=== PATIENT | female | born 1985 | race Caucasian/White ===

== ENCOUNTER 2020-10-03 05:43 | Emergency (ER) | payer MEDICAID, SELFPAY ==
[2020-10-03 05:56] VITALS: BP 135/87; PULSE 71; RESP 18; TEMP 36.7; O2SAT 98; BMI 31.8
[2020-10-03 07:19] VITALS: BP 142/80; PULSE 65; RESP 18; O2SAT 99
--- NOTE | 2020-10-03 07:19 | W.ED.HA ---
HPI - Headache General: Chief Complaint: Headache Stated Complaint: Head Ache Time Seen by Provider: 10/03/20 06:24 Source: patient Mode of arrival: ambulatory Limitations: no limitations History of Present Illness: HPI Narrative: Patient is a 35-year-old female who presents to ED today with a complaint of a severe headache that has been present over the past month. Patient tells me she has no history of migraine headaches. Headache began at rest. She tells me she has not had any relief over the past month. She is rating her headache at a 12/10. She does not describe any alleviating or worsening factors to her discomfort. She is not have any visual changes. She denies neck pain or stiffness. No fevers. Patient has been seen 3 separate times at outside clinics. She tells me she has went to the [facility] walk-in clinic that tried IM medications without relief. She followed up with her PCP Dr. Ruiz. She states during that visit her blood pressure was high so Dr. uRiz placed her on Propranolol hoping this could treat her blood pressure and possibly her headache. She has not gained any relief from this medication. She then followed up at an urgent care clinic who recommended conservative therapy (heating pat, Aleve, etc) and following up with PCP. Patient states last night her headache worsened so decided to come to ED. No trouble with ambulation or speech. No nausea/vomiting. Denies photophobia. MD elicited complaint: headache Onset (ago): week(s) Onset description: gradually Location: right, temporal and occipital Severity: severe Pain scale (0-10): 12 Exacerbating factors: none Relieving factors: nothing Associated symptoms: Reports no associated symptoms; Deny chest pain, confusion, fever(s), malaise, nausea, rash or vomiting Treatments prior to arrival: acetaminophen, ibuprofen and other (IM medications at walk in clinic ) Review of Systems Const: Denies: fever(s), chills, body aches, change in appetite, change in weight, fatigue or malaise Eyes: Denies: change in vision, blurry vision, photophobia, eye discomfort, floaters or seeing flashes ENMT: Denies: throat pain, odynophagia, hoarseness, oral sores, ear or mastoid pain, ear discharge, change in hearing, tinnitus, disequilibrium, nasal discharge, nasal congestion, post nasal drip or sinus pain Card: Denies: chest pain or palpitations Resp: Denies: dyspnea GI: Denies: abdominal pain, nausea or vomiting Musc: Denies: neck pain, back pain, extremity pain, extremity swelling, joint pain or joint swelling Skin/Breast: Denies: rash Neuro: Denies: headache(s), numbness in extremities, weakness in extremities, sensory changes, lack of coordination, difficulty walking, dizziness, vertigo, confusion, Slurred speech present, difficulty communicating thoughts or seizure-like activity PFSH ED PFSH: Social History (Updated 09/30/20 @ 18:12 by Zora Raman LPN) Smoking and tobacco status: current every day smoker Female Reproductive History: Date of last menstrual period: 10/03/20 Physical Exam Const: COMMON NORMALS: no acute distress, average body habitus, patient oriented x3, no limitations, healthy appearing, alert and well nourished GENERAL APPEARANCE: cooperative ORIENTATION/CONSCIOUSNESS: Yes awake, Yes oriented to person, Yes oriented to place and Yes oriented to time HENMT: COMMON NORMALS: normocephalic, atraumatic, hearing grossly normal bilaterally, external ears normal, EAC's normal, TM's normal bilaterally, Normal external nose present, Normal nasal mucous membranes and turbinates present, moist oral mucous membranes, oropharynx normal and gingiva normal HEAD & SCALP: normal to inspection, normocephalic and atraumatic FACE & SINUS: normal facial exam and sinuses nontender NOSE: Normal external nose present and Normal nasal mucous membranes and turbinates present EXTERNAL EAR: Yes external ears normal EXTERNAL AUDITORY CANAL: EAC's normal TYMPANIC MEMBRANE: TM's normal bilaterally MOUTH: Normal oral and palatal mucosa present, lip normal and tongue normal THROAT: posterior oropharynx normal, tonsils normal and uvula midline Eye: COMMON NORMALS: Equal, round and reactive pupils present, EOMs intact bilaterally and normal visual nation by confrontation GENERAL EYE: appearance normal, both eyes and all related structures VISUAL ACUITY: Yes acuity normal PERIORBITAL: periorbital findings normal PUPIL: Yes Equal, round and reactive pupils present OTHER: no nystagmus Neck/C-Spine: COMMON NORMALS: full ROM, no lymphadenopathy and no meningeal signs Resp: COMMON NORMALS: normal respiratory effort Neuro: ANA COMA SCALE: document GCS findings Ana coma scale eye opening: Spontaneous [place] coma scale verbal response: Orientated [place] coma scale motor response: Obey commands [place] coma scale total score: 15 COMMON NORMALS: patient oriented x3, CN's II-XII intact bilaterally, moves all extremities, no focal motor deficits, no sensory deficits noted and gait normal SENSORIUM/ORIENTATION: Yes alert, Yes oriented to person, Yes oriented to place and Yes oriented to time MENINGEAL SIGNS: Yes no meningeal signs Skin: COMMON NORMALS: no rashes or lesions noted GENERAL SKIN EXAM: no rashes or lesions noted Course Consultations: Consultation #1: Dr. Odell-[facility] neurosurgery-recommends 10mg IV dexamethasone and transfer to their facility with plan for surgery; bed control did state they would have a bed available for her Vital Signs: Vital signs: Vital Signs Temperature 98.1 F 10/03/20 05:56 Pulse Rate 71 10/03/20 11:24 Respiratory Rate 18 10/03/20 11:24 Blood Pressure 119/73 10/03/20 11:24 Pulse Oximetry 98 10/03/20 11:24 MDM - Headache MDM Narrative: Medical decision making narrative: Immediately after MRI results were reviewed patient alerted nursing staff that she had to go as she has to be at home with her child so her boyfriend/fianc? could leave for work. I told patient I had not yet consulted with the neurosurgeon. She tells me that she must leave. I told patient I would contact her immediately after speaking to neurosurgery. After speaking to Dr. Odell he recommends having patient come back to the ED and transfer to [facility] as he feels this mass requires surgery given the fact that she already has a 6 mm midline shift. 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 Plan will be for patient to return, get 10mg IV dexamethasone, and transfer to [facility]. [facility] bed control did request we contact them when she returns so they may start working on her bed. Imaging Data^: CT Head: Radiologist's impression: [address] [place], [place] [address] Scan ReportSigned Patient: Zita Diaz #: [id number]: 1985Acct#:[id number]/Sex: 35 / FADM Date: 10/03/20Loc: ERRoom/Bed:Attending Dr: Ordering Provider/Ordering MD: Laura Desai Date of Service: 10/03/20 Procedure(s): CT head wo con* [id number] Accession Number(s): [id number] Report Number: [id number] WS: [id number] CT head wo con* [id number] REASON FOR EXAM: IQBAL IV CONTRAST ADMINISTERED: Noncontrast. TOTAL EXAM DLP: 826.[address] scans at [facility] use at least one of these dose optimization techniques: automated exposure control; mA and/or kV adjustment per patient size (includes targeted exams where dose is matched to clinical indication); or iterative reconstruction. FINDINGS: 5.2 x 3.9 heterogeneous mass of intermediate and low attenuation is seen in the right anterior cranial fossa. There is extensive perilesional edema with mass effect on the anterior horns the lateral ventricles. There is a 5 mm right to left midline shift. No calcification or blood products are identified. The lesion is contiguous with the region of the planum sphenoidale and right floor of the middle cranial fossa. Mild dilatation of the left lateral ventricle. No other significant focal findings. 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 The contiguity with the floor the middle cranial fossa would allow consideration that this is a large meningioma. An MRI brain without and with intravenous contrast is needed for further evaluation. Dictated By:José Torrez Jr MDSigned By:José Torrez Jr MDSigned Date/Time:10/03/20 0807DD/ 0754 MRI: Radiologist's impression: [address] [address] Magnetic Resonance Report Signed Patient: Zita Diaz Unit #: [id number] : 1985 Age/Sex: 35 / F ADM Date: 10/03/20 Loc: ER Room/Bed: Attending Dr: Ordering Provider/Ordering MD: Laura Desai Date of Service: 10/03/20 Procedure(s): MR head wo/w con [id number] Accession Number(s): [id number] Report Number: [id number] WS: [id number] MRI HEAD WITH CONTRAST TECHNIQUE: Sagittal T1, T2 axial, T2 axial FLAIR, axial susceptibility weighted imaging, axial diffusion weighted images, and coronal T2 images were obtained. Pre and post-T1 axial and post T1 coronal images. ADC and FSPGR images. CLINICAL INFORMATION: CT showing brain mass COMPARISON: CT October 03, 2020 FINDINGS: Comparison CT earlier today. Again seen is the heterogeneously enhancing vascular mass involving the right inferior frontal and right middle cranial fossa. This extends to the right inferior skull base with mild dural thickening and enhancement in this area. Heterogeneous mass measures approximately 4.9 x 3.8 x 3.9 cm AP by transverse by craniocaudal. Large amount of surrounding edema. Edema extends into the genu of the corpus callosum with mass effect on the frontal horns. Partial effacement of the suprasellar cistern. Ambient cisterns remain patent. Prominent vascularity with flow voids along the periphery and internal parenchyma of the lesion. Right to left midline shift measures approximately 6 mm. Compression of the foramen of Monro. Mild early trapping of the left lateral ventricle. No transependymal edema. Normal fourth ventricle and foramen magnum. Mild supratentorial mass effect. Enhancing lesion extends to the inferior inferior frontal skull base along the planum sphenoidale and breanne josé manuel. Associated compression of the optic chiasm and right prechiasmatic optic nerve. Compression of the right supraclinoid ICA. Mass encases and narrows the right supraclinoid ICA branches. Sella is preserved with normal pituitary tissue. In addition, the lesion involves the right orbit at the orbital apex and extends along the superior rectus with loss of the normal fat plane and slight orbital invasion. This abuts the superior oblique. Paranasal sinuses and mastoid air cells well aerated. Normal vascular flow voids at the skull base. Prominent lymphoid tissue in the posterior nasopharynx likely reactive in a patient this age. MR/MR head wo/w con [id number] IMPRESSION: 1. Heterogeneous enhancing mass right parasagittal frontal lobe extending to the inferior frontal skull base and middle cranial fossa. This measures approximately 4.9 x 3.8 x 3.9 cm. Large amount of surrounding edema extending into the corpus callosum. Right to left midline shift measures 6 mm with effacement of the frontal horns. 2. Partial effacement of the suprasellar cistern. No hydrocephalus. Early entrapment of the left lateral ventricle. No transependymal edema. Compression of the foramen of Jefferson. 3. Heterogeneous mass involves the right orbit extending to the orbital apex with mild contact of the superior rectus and superior oblique muscles. 4. Impingement on the optic chiasm and right prechiasmatic optic nerve. 5. Differential considerations include atypical or malignant meningioma versus GBM/astrocytoma. 6. Prominent surrounding and internal vascularity with involvement of the supraclinoid ICA. Notified JANELLE De La Cruz at 10/03/2020 1030AM. Dictated By: Chris Aguirre MD Signed By: Chris Aguirre MD Signed Date/Time: 10/03/20 1107 DD/ 1028 Discharge Plan Discharge Patient Disposition: Home Clinical Impression: Neoplasm of brain causing mass effect on adjacent structures Condition: Stable Prescriptions: No Action propranolol 20 mg tablet 10 mg PO BID RF: 0 Discharge Orders: Discharge ED (Routine); Ordered 10/03/20 Ordered By: Laura Desai Activity Restrictions/Additional Instructions: As we discussed you stated that you must leave the ED in order to attend to your child while your leaves for work. Your imaging revealed an aggressive appearing brain mass. As we discussed I need to consult with a neurosurgeon for further instruction and management. I am currently paging [facility] neurosurgery. I will contact you on the number you provided once I speak to them. You need to return to the emergency department for worsening headache, passing out episodes, visual changes, or any other concerns you may have. 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
--- NOTE | 2020-10-03 07:26 | CT_ITS ---
WS: [id number] CT head wo con* [id number] REASON FOR EXAM: IQBAL IV CONTRAST ADMINISTERED: Noncontrast. TOTAL EXAM DLP: 826.[address] scans at [facility] use at least one of these dose optimization techniques: automat ed exposure control; mA and/or kV adjustment per patient size (includes targeted exams where dose is matched to clinical indication); or iterative reconstruction. FINDINGS: 5.2 x 3.9 heterogeneous mass of intermediate and low attenuation is seen in the right anterior crania l fossa. There is extensive perilesional edema with mass effect on the anterior horns the lateral jennifer tricles. There is a 5 mm right to left midline shift. No calcification or blood products are identified. The lesion is contiguous with the region of the pl gavi sphenoidale and right floor of the middle cranial fossa. Mild dilatation of the left lateral ventricle. No other significant focal findings. 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 The contiguit y with the floor the middle cranial fossa would allow consideration that this i s a large meningioma. An MRI brain without and with intravenous contrast is needed for further evalua tion.
[2020-10-03] MEDS: ondansetron 2 mg/ML SDV 2 mL 4 MG IVP (08:13)
[2020-10-03] MEDS: sodium chloride 0.9% 1,000 ML 999 ML IV (08:13)
[2020-10-03] MEDS: ketorolac 60 mg/2 mL INJ 30 MG IVP (08:14)
[2020-10-03] MEDS: diphenhydrAMINE 50 mg/mL SDV 1mL IVP (08:15)
[2020-10-03] MEDS: dexamethasone 10 mg/mL INJ 8 MG IV (08:15)
[2020-10-03 08:20] VITALS: BP 122/86; PULSE 70; RESP 18; O2SAT 97
--- NOTE | 2020-10-03 08:38 | MR_ITS ---
WS: [id number] MRI HEAD WITH CONTRAST TECHNIQUE: Sagittal T1, T2 axial, T2 axial FLAIR, axial susceptibility weighted imaging, axial diffus ion weighted images, and coronal T2 images were obtained. Pre and post-T1 axial and post T1 coronal i mages. ADC and FSPGR images. CLINICAL INFORMATION: CT showing brain mass COMPARISON: CT October 03, 2020 FINDINGS: Comparison CT earlier today. Again seen is the heterogeneously enhancing vascular mass involving the right inferior frontal and right middle cranial fossa. This extends to the right inferior skull base with mild dural thickening and enhancement in this area. Heterogeneous mass measures approximately 4. 9 x 3.8 x 3.9 cm AP by transverse by craniocaudal. Large amount of surrounding edema. Edema extends i nto the genu of the corpus callosum with mass effect on the frontal horns. Partial effacement of the suprasellar cistern. Ambient cisterns remain patent. Prominent vascularity with flow voids along the periphery and internal parenchyma of the lesion. Right to left midline shift measures approximately 6 mm. Compression of the foramen of Monro. Mild early trapping of the left lateral ventricle. No trans ependymal edema. Normal fourth ventricle and foramen magnum. Mild supratentorial mass effect. Enhancing lesion extends to the inferior inferior frontal skull base along the planum sphenoidale and breanne josé manuel. Associated compression of the optic chiasm and right prechiasmatic optic nerve. Compre ssion of the right supraclinoid ICA. Mass encases and narrows the right supraclinoid ICA branches. Se lla is preserved with normal pituitary tissue. In addition, the lesion involves the right orbit at th e orbital apex and extends along the superior rectus with loss of the normal fat plane and slight orb ital invasion. This abuts the superior oblique. Paranasal sinuses and mastoid air cells well aerated. Normal vascular flow voids at the skull base. P rominent lymphoid tissue in the posterior nasopharynx likely reactive in a patient this age. MR/MR head wo/w con [id number] IMPRESSION: 1. Heterogeneous enhancing mass right parasagittal frontal lobe extending to t he inferior frontal skull base and middle cranial fossa. This measures approxim ately 4.9 x 3.8 x 3.9 cm. Large amount of surrounding edema extending into the corpus callosum. Right to left midline shift measures 6 mm with effacement of t he frontal horns. 2. Partial effacement of the suprasellar cistern. No hydrocephalus. Early entr apment of the left lateral ventricle. No transependymal edema. Compression of t he foramen of Jefferson. 3. Heterogeneous mass involves the right orbit extending to the orbital apex w ith mild contact of the superior rectus and superior oblique muscles. 4. Impingement on the optic chiasm and right prechiasmatic optic nerve. 5. Differential considerations include atypical or malignant meningioma versus GBM/astrocytoma. 6. Prominent surrounding and internal vascularity with involvement of the supr aclinoid ICA. Notified JANELLE De La Cruz at 10/03/2020 1030AM.
[2020-10-03 11:24] VITALS: BP 119/73; PULSE 71; RESP 18; O2SAT 98
[2020-10-03] MEDS: gadobenate dimeglumine 20 mL vial IV (14:18)
== END 2020-10-03 11:24 | disposition home or self-care (01) ==
PROVIDERS: Emergency Provider Physician Assistant
DX: D43.0 Neoplasm of uncertain behavior of brain, supratentorial (principal); F17.200 Nicotine dependence, unspecified, uncomplicated
CPT/HCPCS: 70450; 70553; 96361; 96374; 96375; 99284; A9577; J1100; J1200; J1885; J2405; J7030

== ENCOUNTER 2020-10-03 17:19 | Emergency (ER) | payer MEDICAID, SELFPAY ==
--- NOTE | 2020-10-03 17:22 | W.ED.HA ---
HPI - Headache General: Chief Complaint: General Medical Stated Complaint: BRAIN MASS Time Seen by Provider: 10/03/20 17:21 History of Present Illness: HPI Narrative: Patient is a 35-year-old female who presents to ED today with a complaint of a severe headache that has been present over the past month. Patient was seen here in the ED earlier today and a MRI was done which noted a brain mass with right to left midline shift. Patient had a leave and go home to take care of some things and then was told she can come back here to get transferred to [facility] to see the neurologist Dr. Odell. Patient tells me she has no history of migraine headaches. She reports having a mild headache currently. She is not have any visual changes. She denies neck pain or stiffness. No fevers. Associated symptoms: Deny chest pain, fever(s), nausea, rash or vomiting Review of Systems Const: Denies: fever(s), chills or fatigue Eyes: Denies: change in vision or eye discomfort ENMT: Denies: throat pain, odynophagia, nasal discharge or nasal congestion Card: Denies: chest pain, palpitations, edema, swelling of feet/ankles, dyspnea on exertion or orthopnea Resp: Denies: dyspnea, productive cough or non-productive cough GI: Denies: abdominal pain, nausea, vomiting, diarrhea, constipation or hematochezia : Denies: flank pain, dysuria or hematuria Musc: Denies: neck pain, back pain or extremity swelling Skin/Breast: Denies: rash or new lesions Neuro: Reports: headache(s); Denies: numbness in extremities or weakness in extremities PFS ED PFSH: Social History Smoking and tobacco status: current every day smoker Female Reproductive History: Date of last menstrual period: 10/03/20 Physical Exam Const: COMMON NORMALS: no acute distress, patient oriented x3, healthy appearing and alert GENERAL APPEARANCE: cooperative and comfortable HENMT: COMMON NORMALS: normocephalic HEAD & SCALP: normocephalic MOUTH: Normal oral and palatal mucosa present THROAT: posterior oropharynx normal and uvula midline Eye: COMMON NORMALS: Equal, round and reactive pupils present, EOMs intact bilaterally, conjunctivae normal and normal visual nation by confrontation CONJUNCTIVA: Yes conjunctivae normal PUPIL: Yes Equal, round and reactive pupils present Neck/C-Spine: COMMON NORMALS: supple GENERAL: Yes normal visual inspection Resp: COMMON NORMALS: normal respiratory effort, No retractions, No use of accessory muscles and clear to auscultation bilaterally AUSCULTATION: clear to auscultation bilaterally Cardio: COMMON NORMALS: regular rate, regular rhythm, S1 normal heart sound present, S2 normal heart sound present, No gallops present (Cardio), No clicks present (Cardio), No murmurs present (Cardio) and Peripheral pulses 2+ throughout RATE: regular rate RHYTHM: regular rhythm HEART SOUNDS: S1 normal heart sound present and S2 normal heart sound present PERIPHERAL PULSES: Peripheral pulses 2+ throughout GI: COMMON NORMALS: Normal to inspection, nondistended, normoactive bowel sounds present, Soft to palpation, non-tender and no masses PALPATION: Yes Soft to palpation : COMMON NORMALS: Yes no CVA tenderness BLADDER/KIDNEY EXAM: Yes no CVA tenderness Back/Pelvis: COMMON NORMALS: no CVA tenderness Extremity: COMMON NORMALS: normal to inspection Neuro: COMMON NORMALS: patient oriented x3, CN's II-XII intact bilaterally, moves all extremities, no focal motor deficits and no sensory deficits noted SENSORIUM/ORIENTATION: Yes alert SENSORY EXAM: Yes extremities (intact) MOTOR EXAM: 5/5 motor strength present throughout Skin: GENERAL SKIN EXAM: dry skin Course ED course: The physician assistant sales manager Laura Desai took care of patient this morning and she is coming back in here to the ED to be transferred to [facility]. Laura Desai has already spoke with Neurologist, Dr. Odell and [facility] has accepted transfer of pt. the neurologist wanted Laura Desai to have patient received 10 mg of Decadron IV before being transferred. Vital Signs: Vital signs: Vital Signs Temperature 97.8 F 10/03/20 18:15 Pulse Rate 91 10/03/20 20:01 Respiratory Rate 18 10/03/20 20:01 Blood Pressure 119/78 10/03/20 20:01 Pulse Oximetry 96 10/03/20 20:01 MDM - Headache MDM Narrative: Medical decision making narrative: Patient is a 35-year-old female who is returning to the ED after being seen earlier today for headache. The physician assistant sales manager Laura Desai took care of patient this morning and she is coming back in here to the ED to be transferred to [facility] due to MRI findings of a intracranial mass in the right frontal lobe. Laura Desai has already spoke with Neurologist, Dr. Odell and [facility] has accepted transfer of pt. patient complains of just a mild headache but no other symptoms. Neuro exam was normal and rest of exam was benign. IV was placed on patient and she was given 10 mg of Decadron. She was then transferred to [facility]. Discharge Plan Discharge Patient Disposition: Xfer Short-Term Hosp Clinical Impression: Neoplasm of brain causing mass effect on adjacent structures Condition: Stable Coding Level of Care Code ED Prior Authorization Nurse for Dwightg Fwd Exam Comprehensive
[2020-10-03 18:15] VITALS: BP 115/71; PULSE 109; RESP 18; TEMP 36.6; O2SAT 96; BMI 31.8
[2020-10-03] MEDS: dexamethasone 10 mg/mL INJ IVP (18:22)
[2020-10-03 19:13] VITALS: BP 115/71; PULSE 98; RESP 96; O2SAT 96
--- NOTE | 2020-10-03 19:16 | PC.NURSE ---
Report from NIKO Hurtado
[2020-10-03] MEDS: nicotine 14 mg Patch 1 PATCH TRANSDERMA (19:57)
[2020-10-03 20:01] VITALS: BP 119/78; PULSE 91; RESP 18; O2SAT 96
== END 2020-10-03 20:01 | disposition short-term general hospital (02) ==
PROVIDERS: Emergency Provider Physician Assistant; PCP Family Medicine
DX: D43.0 Neoplasm of uncertain behavior of brain, supratentorial (principal)
CPT/HCPCS: 96374; 99285; J1100

== ENCOUNTER 2022-06-07 10:01 | Emergency (ER) | payer MEDICAID, SELFPAY ==
[2022-06-07 10:30] VITALS: BP 147/80; PULSE 122; RESP 20; TEMP 36.7; O2SAT 97
[2022-06-07 10:38] VITALS: BP 136/74; PULSE 85; RESP 17; O2SAT 97
--- NOTE | 2022-06-07 10:44 | XR_ITS ---
WS: [id number] Exam: XR chest 1V portable [id number] Date/Time of Exam: 06/07/2022 10:44 AM Reason For Exam: dyspnea/cough Comparison 09/13/2018. Findings: The lungs are clear and fully expanded. Costophrenic angles are sharp. No infiltrates. Bronchovascula r relief appears normal. Cardiac silhouette is unremarkable. Bony elements are intact. XR/XR chest 1V portable [id number] IMPRESSION: Unremarkable chest radiograph.
[2022-06-07 11:16] VITALS: BP 122/77; PULSE 88; RESP 17; O2SAT 96
[2022-06-07 11:25] LABS: Basophils # 0.1 10^3/uL (0.0-0.1); Basophils % 0.4 %; Eosinophils # 0.2 10^3/uL (0.0-0.8); Hematocrit 42.4 % (37.0-47.0); Hemoglobin 13.7 g/dL (11.5-15.3); Lymphocytes % 19.7 %; Mean Corpuscular HGB Conc 32.3 g/dL (30.0-36.0); Mean Corpuscular Hemoglobin 31.1 pg (28.0-34.0); Mean Corpuscular Volume 96.4 fl (81-99); Mean Platelet Volume 9.3 fL (7.4-10.4); Monocytes # 1.6 10^3/uL (0.2-0.9); Monocytes % 7.6 %; Neutrophils # 14.35 10^3/uL (1.8-7.7); Neutrophils % 70.1 %; Nucleated Red Blood Cells % 0 %; Platelet Count 349 10^3/cmm (130-400); White Blood Count 20.5 10^3/uL (4.0-10.0)
--- NOTE | 2022-06-07 11:37 | ED_ITS ---
HPI - SOB/Dyspnea General: Chief Complaint: Shortness of Breath/Dyspnea Stated Complaint: sob,back pain, DR sent Time Seen by Provider: 06/07/22 10:42 Source: patient Mode of arrival: ambulatory History of Present Illness: HPI Narrative: 36-year-old female presents emergency room complaining of shortness of breath and back pain this been going on for nearly a month. She is currently on a steroid. Patient's biggest complaint is of cough she is not particularly short of breath except when she has coughing fits. Vital signs are stable she is not tachycardic or hypoxic on arrival here. She denies any hemoptysis. She is not on any anticoagulants at this time she is on steroids chronically. She is a current smoker. MD elicited complaint: shortness of breath and cough Pertinent past history: COPD Onset (ago): month(s) Timing: constant Severity: mild Exacerbating factors: nothing Relieving factors: nothing Known history of: COPD Associated symptoms: Reports cough; Deny abdominal pain, chest congestion, chest pain, diaphoresis, dizziness, extremity pain, fever(s), hemoptysis, lightheadedness, myalgias, nausea, orthopnea, palpitations, paresthesias, polydipsia, polyuria, rash, sense of impending doom, syncope or vomiting Review of Systems Const: Denies: fever(s) or diaphoresis Card: Denies: chest pain, palpitations, lightheadedness, syncope or orthopnea Resp: Denies: hemoptysis or chest congestion GI: Denies: abdominal pain, nausea or vomiting Musc: Denies: extremity pain Neuro: Denies: dizziness Endo: Denies: polyuria or polydipsia [facility] ED PFSH: Medical History (Updated 06/07/22 @ 13:56 by Yunier Ventura DO) Brain tumor COPD (chronic obstructive pulmonary disease) Social History Smoking and tobacco status: current every day smoker Physical Exam Const: COMMON NORMALS: no acute distress GENERAL APPEARANCE: cooperative and comfortable ORIENTATION/CONSCIOUSNESS: Yes awake, Yes oriented to person, Yes oriented to place and Yes oriented to time HENMT: COMMON NORMALS: normocephalic, atraumatic and hearing grossly normal bilaterally HEAD & SCALP: normocephalic and atraumatic Resp: COMMON NORMALS: normal respiratory effort, No retractions, No use of accessory muscles and clear to auscultation bilaterally AUSCULTATION: clear to auscultation bilaterally Cardio: COMMON NORMALS: regular rate, regular rhythm and No murmurs present (Cardio) RATE: regular rate RHYTHM: regular rhythm GI: COMMON NORMALS: Soft to palpation and No hepatosplenomegaly present AUSCULTATION: Yes normoactive bowel sounds PALPATION: Yes Soft to palpation, No Tenderness to palpation present (GI), No Guarding due to palpation present (GI) and Yes No hepatosplenomegaly present Extremity: COMMON NORMALS: normal to inspection, capillary refill normal, no clubbing, cyanosis or edema, no calf tenderness and no pedal edema Neuro: SENSORIUM/ORIENTATION: Yes oriented to person, Yes oriented to place and Yes oriented to time Skin: COMMON NORMALS: no rashes or lesions noted GENERAL SKIN EXAM: no rashes or lesions noted Course Vital Signs: Vital signs: Vital Signs Temperature 98.1 F 06/07/22 10:30 Pulse Rate 84 06/07/22 14:00 Respiratory Rate 16 06/07/22 14:00 Blood Pressure 155/83 06/07/22 14:00 Pulse Oximetry 96 06/07/22 14:00 Oxygen Delivery Me thod 06/07/22 13:08 MDM - SOB/Dyspnea Medical Decision Making Chest x-ray shows some hyper inflation based on her symptoms suspect she does have some COPD is at that that was driving his chronic cough she is not t achycardic or hypoxic. CTA was negative for PE. Discharge patient home on Advair continue beta agonist follow-up with primary care. Medical Records I reviewed the patient's medical records. Lab Data I reviewed the patient's lab results. 06/07/22 11:06 06/07/22 11:06 Labs/Radiology: Radiology Impressions Chest X-Ray 06/07/22 10:44 IMPRESSION: Unremarkable chest radiograph. Chest CTA 06/07/22 12:08 IMPRESSION: 1. No evidence of pulmonary embolus. 2. Lungs are well aerated. No acute pulmonary infiltrates. 3. No acute chest findings. Laboratory Results WBC 20.5 10^3/uL (4.0-10.0) H 06/07/22 11:06 RBC 4.40 10^6/uL (4.1-5.3) 06/07/22 11:06 Hgb 13.7 g/dL (11.5-15.3) 06/07/22 11:06 Hct 42.4 % (37.0-47.0) 06/07/22 11:06 MCV 96.4 fl (81-99) 06/07/22 11:06 MCH 31.1 pg (28.0-34.0) 06/07/22 11:06 MCHC 32.3 g/dL (30.0-36.0) 06/07/22 11:06 RDW 14.0 % (12.1-15.1) 06/07/22 11:06 Plt Count 349 10^3/cmm (130-400) 06/07/22 11:06 MPV 9.3 fL (7.4-10.4) 06/07/22 11:06 Neut % (Auto) 70.1 % 06/07/22 11:06 Lymph % (Auto) 19.7 % 06/07/22 11:06 [place] % (Auto) 7.6 % 06/07/22 11:06 Eos % (Auto) 1.0 % 06/07/22 11:06 Baso % (Auto) 0.4 % 06/07/22 11:06 Neut # (Auto) 14.35 10^3/uL (1.8-7.7) H 06/07/22 11:06 Lymph # (Auto) 4.0 10^3/uL (0.8-4.8) 06/07/22 11:06 [place] # (Auto) 1.6 10^3/uL (0.2-0.9) H 06/07/22 11:06 Eos # (Auto) 0.2 10^3/uL (0.0-0.8) 06/07/22 11:06 Baso # (Auto) 0.1 10^3/uL (0.0-0.1) 06/07/22 11:06 Nucleated RBC % (auto) 0 % 06/07/22 11:06 Nucleated RBCs # 0.0 /100WBC 06/07/22 11:06 Sodium 136 mmol/L (136-145) 06/07/22 11:06 Potassium 4.1 mmol/L (3.5-5.1) 06/07/22 11:06 Chloride 98 mmol/L (98-107) 06/07/22 11:06 Carbon Dioxide 30 mmol/L (22-29) H 06/07/22 11:06 Anion Gap 12.1 (5-19) 06/07/22 11:06 BUN 18 mg/dL (6-20) 06/07/22 11:06 Creatinine 0.7 mg/dL (0.5-0.9) 06/07/22 11:06 GFR Calculation 95.8 mL/min (90-130) 06/07/22 11:06 Glucose 75 mg/dL (65-115) 06/07/22 11:06 Calculated Osmolality 283 mOsm/kg (285-295) L 06/07/22 11:06 Calcium 9.5 mg/dL (8.5-10.5) 06/07/22 11:06 Total Bilirubin 0.2 mg/dL (0.15-1.2) 06/07/22 11:06 AST 16 U/L (0-32) 06/07/22 11:06 ALT 26 U/L (0-33) 06/07/22 11:06 Alkaline Phosphatase 56 U/L (35-105) 06/07/22 11:06 Total Protein 7.2 g/dL (6.6-8.7) 06/07/22 11:06 Albumin 4.4 g/dL (3.5-5.2) 06/07/22 11:06 Globulin 2.8 g/dL (1.3-4.6) 06/07/22 11:06 Discharge Plan Discharge Patient Disposition: Home Clinical Impression: Brain tumor, COPD (chronic obstructive pulmonary disease) Condition: Stable Prescriptions: New Advair Diskus 100-50 mcg/dose blister with device 1 inh inhalation BID Qty: 60 0RF No Action amoxicillin 500 mg capsule 500 mg PO BID hydrocodone-acetaminophen 5-325 mg tablet 1 tab PO Q6H PRN (Reason: Pain) alprazolam 0.5 mg tablet 0.5 mg PO BID PRN (Reason: Anxiety) benzonatate 100 mg capsule 200 mg PO TID omeprazole 20 mg Capsule,Delayed Release(Dr/Ec) 20 mg PO DAILY lidocaine HCl 3 % cream 1 applic topical BID Discharge Orders: Discharge ED (Routine); Ordered 06/07/22 Ordered By: Yunier Ventura Referrals: Becky Ruiz MD [Primary Care Provider] - Discharge Diet: Usual diet Discharge Activity: Increase activity as tolerated Patient Instructions: Opioid Safety, Pain Management Activity Restrictions/Additional Instructions: You were seen today for chronic cough and shortness of breath. Based on your history and your exam findings suspect you may have some underlying COPD and may benefit from further evaluation including pulmonary function test there was some hyperinflation of your lungs which can be an indication of COPD. CT of the chest was negative for pulmonary emboli. Your white count was slightly elevated but this is probably due to the prednisone you have told us you were taking. Continue current medications and recommend that you add the Advair 1 puff twice daily and follow-up with your primary care doctor. 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
[2022-06-07 11:41] LABS: Alanine Aminotransferase 26 U/L (0-33); Albumin Level 4.4 g/dL (3.5-5.2); Alkaline Phosphatase 56 U/L (35-105); Anion Gap 12.1 (5-19); Aspartate Amino Transferase 16 U/L (0-32); Blood Urea Nitrogen 18 mg/dL (6-20); Calcium 9.5 mg/dL (8.5-10.5); Carbon Dioxide 30 mmol/L (22-29); Chloride 98 mmol/L (98-107); Globulin 2.8 g/dL (1.3-4.6); Glomerular Filtration Rate 95.8 mL/min (90-130); Glucose 75 mg/dL (65-115); Osmolality Calculated 283 mOsm/kg (285-295); Potassium 4.1 mmol/L (3.5-5.1); Sodium 136 mmol/L (136-145); Total Bilirubin 0.2 mg/dL (0.15-1.2); Total Protein 7.2 g/dL (6.6-8.7)
[2022-06-07 11:52] LABS: Slide Review Slide Review Perform
--- NOTE | 2022-06-07 12:08 | CT_ITS ---
WS: [id number] CTA OF THE CHEST WITH PULMONARY EMBOLISM PROTOCOL TECHNIQUE: High-resolution contrast enhanced CTA of the chest with coronal and sagittal reformatted i mages with pulmonary embolism protocol. MIP images are also reviewed. CLINICAL INFORMATION: Cough shortness of breath COMPARISON: None. DLP: 380.[address] scans at [facility] use at least one of these dose optimization techniques: automated e xposure control; mA and/or kV adjustment per patient size (includes targeted exams where dose is matc hed to clinical indication); or iterative reconstruction. FINDINGS: Proximal main pulmonary arteries are normal. Normal segmental and subsegmental pulmonary arteries. No evidence of pulmonary embolus. Lungs are well aerated. No acute pulmonary infiltrates. No focal pneumonia or pleural fluid. No media stinal or hilar lymphadenopathy. No axillary lymphadenopathy. Adrenal glands are normal. Normal calib er upper abdominal aorta. CT/CT angio chest PE protcl [id number] IMPRESSION: 1. No evidence of pulmonary embolus. 2. Lungs are well aerated. No acute pulmonary infiltrates. 3. No acute chest findings.
[2022-06-07] MEDS: iohexol 350 mg/mL 500 mL Btl (per mL) IV (12:45)
[2022-06-07 13:08] VITALS: BP 155/83; PULSE 84; RESP 16; O2SAT 96
[2022-06-07 14:00] VITALS: BP 155/83; PULSE 84; RESP 16; O2SAT 96
== END 2022-06-07 14:01 | disposition home or self-care (01) ==
PROVIDERS: Emergency Provider Family Medicine; PCP Family Medicine
DX: J44.9 Chronic obstructive pulmonary disease, unspecified (principal); D49.6 Neoplasm of unspecified behavior of brain; F17.210 Nicotine dependence, cigarettes, uncomplicated
CPT/HCPCS: 71045; 71275; 80053; 85025; 99285; Q9967

== ENCOUNTER 2022-07-15 17:40 | Outpatient (CLI) | payer MEDICAID, SELFPAY ==
[2022-07-15 18:22] LABS: Bacteria Urine TRACE /hpf; Bilirubin Urine Neg (Negative); Blood Urine Neg (Negative); Glucose Urine UA Norm (Normal); Ketones Urine 1+ (Negative); Leukocyte Esterase Urine Negative (Negative); Mucus Urine 2+ /hpf; Nitrate Urine Negative (Negative); Protein Urine 1+ (Negative); RBC Urine 0-4 /hpf (0-2); Specific Gravity, Urine 1.025 (1.005-1.030); Squamous Epithelial Cell Urine 15-25 /hpf (0-5); Urine Appearance Hazy (CLEAR); Urine Color Yellow (Yellow); Urobilinogen Urine 1 mg/dL (Negative); WBC Urine 0-4 /hpf (0-5); pH Urine 5 (5-7)
[2022-07-15 18:23] LABS: Add Urine Culture? No
== END 2022-07-15 17:41 | disposition home or self-care (01) ==
LOC: LAB 17:46
PROVIDERS: PCP Family Medicine; Visit Provider Internal Medicine Medical Oncology
DX: C71.9 Malignant neoplasm of brain, unspecified (principal)
CPT/HCPCS: 81001; 87086

== ENCOUNTER 2022-10-24 03:14 | Emergency (ER) | payer MEDICAID, SELFPAY ==
[2022-10-24 03:19] VITALS: BP 182/112; PULSE 106; RESP 18; TEMP 36.6; O2SAT 96; BMI 37.5
[2022-10-24 03:48] VITALS: BP 138/98; PULSE 75; O2SAT 95
[2022-10-24] MEDS: clindamycin 150 mg Capsule 300 MG PO (04:38)
--- NOTE | 2022-10-24 04:39 | W.ED.SKABFB ---
HPI - Skin/Abscess/Foreign Bdy General: Chief complaint: Skin/Abscess/Foreign Body Stated complaint: Cist On Bottom History of Present Illness: 37-year-old female with history of anxiety presents emergency room with pain, swelling, redness and drainage from the left buttocks for the past few days. Patient was initially seen and evaluated at a local clinic and diagnosed with yeast infection and started on Diflucan. Patient reveals increased pain and drainage from the area within the past 24 hours. Described the pain as throbbing sensation with severity of 7 out of 10. Denies any fever, chills, nausea, vomiting, diarrhea or bloody stool. Review of Systems General: Reports: 10 or more systems reviewed and unremarkable except in HPI and below Skin/Breast: Reports: erythema, skin tenderness and other (Pus drainage.) PFSH ED PFSH: Medical History (Updated 10/24/22 @ 04:38 by Brock Duran MD) Brain tumor COPD (chronic obstructive pulmonary disease) Social History Smoking and tobacco status: current every day smoker Female Reproductive History: Date of last menstrual period: 05/15/22 Physical Exam Const: COMMON NORMALS: no acute distress, average body habitus, patient oriented x3, no limitations, healthy appearing, alert and well nourished Lymph: LYMPHATIC: no lymphadenopathy noted Resp: COMMON NORMALS: normal respiratory effort, No retractions, No use of accessory muscles, clear to auscultation bilaterally and percussion normal AUSCULTATION: clear to auscultation bilaterally PERCUSSION: percussion normal GI: COMMON NORMALS: Normal to inspection, nondistended, normoactive bowel sounds present, Soft to palpation, non-tender, No hepatosplenomegaly present, no masses and no bruits PALPATION: Yes Soft to palpation and Yes No hepatosplenomegaly present Neuro: COMMON NORMALS: patient oriented x3 SENSORIUM/ORIENTATION: Yes alert Skin: NARRATIVE SKIN EXAM: Left buttocks with diffuse redness, tenderness in the sinus. Sinus with purulent discharge. Procedures Abscess I/D Site: other (Left buttock) Side (if applicable): left Local Anesthetic: lidocaine 2% Amount of anesthesia used (mL): 10 Technique: incised with #11 blade Amount of fluid expressed (mL): 2 Irrigation: No Packing used?: iodoform Complications: pain Course Vital Signs: Vital signs: Vital Signs Temperature 97.9 F 10/24/22 03:19 Pulse Rate 75 10/24/22 03:48 Respiratory Rate 18 10/24/22 03:19 Blood Pressure 138/98 10/24/22 03:48 Pulse Oximetry 95 10/24/22 03:48 Oxygen Delivery Me thod Room Air 10/24/22 03:48 MDM - Skin/Abscess/Foreign Bdy Medicial Decision Making Patient made comfortable emergency room. Patient had I&D procedure done. The procedure was uneventful and no complication. She was given oral antibiotics. Patient be discharged home on oral antibiotics and close follow-up PCP recommended for wound recheck. Discharge Plan Discharge Patient Disposition: Home Clinical Impression: Abscess of skin or subcutaneous tissue Condition: Stable Prescriptions: New clindamycin HCl 300 mg capsule 300 mg PO TID 7 Days Qty: 21 0RF No Action amoxicillin 500 mg capsule 500 mg PO BID hydrocodone-acetaminophen 5-325 mg tablet 1 tab PO Q6H PRN (Reason: Pain) alprazolam 0.5 mg tablet 0.5 mg PO BID PRN (Reason: Anxiety) benzonatate 100 mg capsule 200 mg PO TID omeprazole 20 mg Capsule,Delayed Release(Dr/Ec) 20 mg PO DAILY lidocaine HCl 3 % cream 1 applic topical BID Advair Diskus 100-50 mcg/dose blister with device 1 inh inhalation BID Qty: 60 0RF Discharge Orders: Discharge ED (Routine); Ordered 10/24/22 Ordered By: Brock Duran Referrals: Becky Ruiz MD [Primary Care Provider] - Discharge Diet: Advance as tolerated Discharge Activity: Resume usual activity Patient Instructions: Opioid Safety, Pain Management Activity Restrictions/Additional Instructions: Wound recheck in 2 to 3 days. 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
[2022-10-24 04:43] VITALS: BP 155/105; PULSE 98; RESP 16; O2SAT 95
--- NOTE | 2022-10-24 05:01 | W.ED.SKABFB ---
HPI - Skin/Abscess/Foreign Bdy General: Chief complaint: Skin/Abscess/Foreign Body Stated complaint: Cist On Bottom History of Present Illness: Left buttocks with area of redness, drainage and pain Review of Systems General: Reports: 10 or more systems reviewed and unremarkable except in HPI and below Eyes: Denies: photophobia Skin/Breast: Reports: erythema, skin tenderness and other (Pus drainage.) PFSH ED PFSH: Medical History (Updated 10/24/22 @ 04:38 by Brock Duran MD) Brain tumor COPD (chronic obstructive pulmonary disease) Social History Smoking and tobacco status: current every day smoker Female Reproductive History: Date of last menstrual period: 05/15/22 Physical Exam Const: COMMON NORMALS: no acute distress, average body habitus, patient oriented x3, no limitations, healthy appearing, alert and well nourished Lymph: LYMPHATIC: no lymphadenopathy noted Resp: COMMON NORMALS: normal respiratory effort, No retractions, No use of accessory muscles, clear to auscultation bilaterally and percussion normal AUSCULTATION: clear to auscultation bilaterally PERCUSSION: percussion normal GI: COMMON NORMALS: Normal to inspection, nondistended, normoactive bowel sounds present, Soft to palpation, non-tender, No hepatosplenomegaly present, no masses and no bruits PALPATION: Yes Soft to palpation and Yes No hepatosplenomegaly present Neuro: COMMON NORMALS: patient oriented x3 SENSORIUM/ORIENTATION: Yes alert Skin: NARRATIVE SKIN EXAM: Left buttocks with diffuse redness, tenderness in the sinus. Sinus with purulent discharge. Course Vital Signs: Vital signs: Vital Signs Temperature 97.9 F 10/24/22 03:19 Pulse Rate 98 10/24/22 04:43 Respiratory Rate 16 10/24/22 04:43 Blood Pressure 155/105 10/24/22 04:43 Pulse Oximetry 95 10/24/22 04:43 Oxygen Delivery Me thod Room Air 10/24/22 03:48 MDM - Skin/Abscess/Foreign Bdy Medicial Decision Making Made comfortable emergency room Differential Diagnosis Likely abscess of skin or subcutaneous tissue, dermatophytosis, urticaria, herpes zoster, allergic reaction to drug, cellulitis, insect bites, impetigo and contact dermatitis Discharge Plan Discharge Patient Disposition: Home Clinical Impression: Abscess of skin or subcutaneous tissue Condition: Stable Prescriptions: New clindamycin HCl 300 mg capsule 300 mg PO TID 7 Days Qty: 21 0RF No Action amoxicillin 500 mg capsule 500 mg PO BID hydrocodone-acetaminophen 5-325 mg tablet 1 tab PO Q6H PRN (Reason: Pain) alprazolam 0.5 mg tablet 0.5 mg PO BID PRN (Reason: Anxiety) benzonatate 100 mg capsule 200 mg PO TID omeprazole 20 mg Capsule,Delayed Release(Dr/Ec) 20 mg PO DAILY lidocaine HCl 3 % cream 1 applic topical BID Advair Diskus 100-50 mcg/dose blister with device 1 inh inhalation BID Qty: 60 0RF Discharge Orders: Discharge ED (Routine); Ordered 10/24/22 Ordered By: Brock Duran Referrals: Becky Ruiz MD [Primary Care Provider] - Discharge Diet: Advance as tolerated Discharge Activity: Resume usual activity Patient Instructions: Opioid Safety, Pain Management Activity Restrictions/Additional Instructions: Wound recheck in 2 to 3 days. 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
== END 2022-10-24 04:48 | disposition home or self-care (01) ==
PROVIDERS: Emergency Provider Family Medicine; PCP Family Medicine
DX: L02.31 Cutaneous abscess of buttock (principal); J44.9 Chronic obstructive pulmonary disease, unspecified; F17.210 Nicotine dependence, cigarettes, uncomplicated
CPT/HCPCS: 10060; 99283

== ENCOUNTER 2022-10-24 18:12 | Emergency (ER) | payer MEDICAID, SELFPAY ==
[2022-10-24 18:32] VITALS: BP 161/105; PULSE 65; RESP 16; TEMP 36.6; O2SAT 96
--- NOTE | 2022-10-24 19:49 | W.ED.WOUNDLC ---
HPI - Wound/Laceration General: Chief Complaint: Wound/Laceration Stated Complaint: abs needs repacked Time Seen by Provider: 10/24/22 19:32 History of Present Illness: Patient was seen and evaluated by me yesterday for left buttocks abscess. Patient underwent incision and drainage of the abscess. Abscess was packed. Return to emergency room today because the packing was coming out. Denies any increased pain, no fever or chills. No nausea or vomiting. Review of Systems General: Reports: 10 or more systems reviewed and unremarkable except in HPI and below Skin/Breast: Reports: other (Left buttocks abscess status post I&D) [facility] ED PFS: Medical History (Updated 10/24/22 @ 19:48 by Brock Duran MD) Brain tumor COPD (chronic obstructive pulmonary disease) Social History Smoking and tobacco status: current every day smoker Physical Exam Const: COMMON NORMALS: no acute distress, average body habitus, patient oriented x3, no limitations, healthy appearing, alert and well nourished HENMT: COMMON NORMALS: normocephalic, atraumatic, hearing grossly normal bilaterally, external ears normal, EAC's normal, TM's normal bilaterally, Normal external nose present, Normal nasal mucous membranes and turbinates present, moist oral mucous membranes, oropharynx normal, dentition normal and gingiva normal HEAD & SCALP: normocephalic and atraumatic NOSE: Normal external nose present and Normal nasal mucous membranes and turbinates present EXTERNAL EAR: Yes external ears normal EXTERNAL AUDITORY CANAL: EAC's normal TYMPANIC MEMBRANE: TM's normal bilaterally Neck/C-Spine: COMMON NORMALS: no JVD Cardio: COMMON NORMALS: no JVD, regular rate, regular rhythm, S1 normal heart sound present, S2 normal heart sound present, No gallops present (Cardio), No clicks present (Cardio), No murmurs present (Cardio), No rub (Cardio) and Peripheral pulses 2+ throughout RATE: regular rate RHYTHM: regular rhythm HEART SOUNDS: S1 normal heart sound present and S2 normal heart sound present PERIPHERAL PULSES: Peripheral pulses 2+ throughout Neuro: COMMON NORMALS: patient oriented x3 SENSORIUM/ORIENTATION: Yes alert Skin: NARRATIVE SKIN EXAM: Left buttocks with area of localized redness. No acute drainage from the wound site. Packing was partially loose. No active bleeding. Course Vital Signs: Vital signs: Vital Signs Temperature 97.9 F 10/24/22 18:32 Pulse Rate 65 10/24/22 18:32 Respiratory Rate 16 10/24/22 18:32 Blood Pressure 161/105 10/24/22 18:32 Pulse Oximetry 96 10/24/22 18:32 Oxygen Delivery Me thod Room Air 10/24/22 18:32 MDM - Wound/Laceration Medical Decision Making Patient was made come to emergency room. The wound was repacked and secured with tape. Patient was told to continue taking antibiotics as directed. Follow-up PCP recommended for further evaluation and treatment of the wound. Differential Diagnosis Likely laceration, abscess, abrasion and avulsion of skin Discharge Plan Discharge Patient Disposition: Home Clinical Impression: Abscess of skin or subcutaneous tissue, Encounter for wound re-check Condition: Stable Prescriptions: No Action amoxicillin 500 mg capsule 500 mg PO BID hydrocodone-acetaminophen 5-325 mg tablet 1 tab PO Q6H PRN (Reason: Pain) alprazolam 0.5 mg tablet 0.5 mg PO BID PRN (Reason: Anxiety) benzonatate 100 mg capsule 200 mg PO TID omeprazole 20 mg Capsule,Delayed Release(Dr/Ec) 20 mg PO DAILY lidocaine HCl 3 % cream 1 applic topical BID Advair Diskus 100-50 mcg/dose blister with device 1 inh inhalation BID Qty: 60 0RF clindamycin HCl 300 mg capsule 300 mg PO TID 7 Days Qty: 21 0RF Discharge Orders: Discharge ED (Routine); Ordered 10/24/22 Ordered By: Brock Duran Referrals: Becky Ruiz MD [Primary Care Provider] - Discharge Diet: Advance as tolerated Discharge Activity: Resume usual activity Patient Instructions: Opioid Safety, Pain Management Activity Restrictions/Additional Instructions: Keep wound dry and clean. Follow-up with your doctor in 2 to 3 days for wound recheck. You are allowed to pull the packing in 3 days. 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
[2022-10-24] MEDS: TRAMadol 50 mg Tablet PO (20:00)
[2022-10-24 20:02] VITALS: PULSE 67; RESP 16; O2SAT 100
== END 2022-10-24 20:03 | disposition home or self-care (01) ==
PROVIDERS: Emergency Provider Family Medicine; PCP Family Medicine
DX: Z48.00 Encounter for change or removal of nonsurgical wound dressing (principal); L02.31 Cutaneous abscess of buttock; J44.9 Chronic obstructive pulmonary disease, unspecified; F17.210 Nicotine dependence, cigarettes, uncomplicated
CPT/HCPCS: 99283

== ENCOUNTER 2023-08-20 17:06 | Emergency (ER) | payer MEDICAID, SELFPAY ==
[2023-08-20] VITALS (7 sets, daily range): BP systolic 123–159; BP diastolic 82–104; PULSE 96–109; RESP 16–19; TEMP 36.7; O2SAT 94–100
[2023-08-20 18:52] LABS: Basophils # 0.1 10^3/uL (0.0-0.1); Basophils % 0.4 %; Eosinophils # 0.1 10^3/uL (0.0-0.8); Eosinophils % 0.8 %; Hematocrit 37.7 % (36-47); Lymphocytes # 2.6 10^3/uL (0.8-4.8); Lymphocytes % 16.7 %; Mean Corpuscular Hemoglobin 31.5 pg (27-33); Mean Corpuscular Volume 92.9 fl (85-98); Mean Platelet Volume 9.9 fL (7.4-10.4); Monocytes # 1.8 10^3/uL (0.2-0.9); Monocytes % 11.6 %; Neutrophils # 10.44 10^3/uL (1.8-7.7); Nucleated Red Blood Cells % 0 %; Platelet Count 262 10^3/cmm (157-399); Red Blood Count 4.06 10^6/uL (3.85-5.65); Red Cell Distribution Width 15.5 % (12.1-15.1); White Blood Count 15.57 10^3/uL (3.29-11.43)
--- NOTE | 2023-08-20 18:54 | CTR_ITS ---
PROCEDURE INFORMATION: Exam: CT Head Without Contrast Exam date and time: 08/20/2023 7:00 PM Age: 38 years old Clinical indication: Condition or disease; Other: Glioblastoma; Prior surgery; Surgery date: 6+ months; Surgery type: Laser ablasion; Additional info: Encephalopathy, recurrent glioblastoma. TECHNIQUE: Imaging protocol: Computed tomography of the head without contrast. Radiation optimization: All CT scans at this facility use at least one of these dose optimization techniques: automated exposure control; mA and/or kV adjustment per patient size (includes targeted exams where dose is matched to clinical indication); or iterative reconstruction. COMPARISON: MR head wo/w con [id number] 10/03/2020 9:11 AM RADIATION DOSE METRICS: Total DLP (mGy-cm): 1034 FINDINGS: Brain: The mass in the parafalcine right frontal lobe appears significantly smaller in size. Accurate measurement is not possible without IV contrast. Extensive white matter edema in the right frontal, anterior parietal, and anterior temporal lobes. New regions of encephalomalacia in the parafalcine right occipital and parietal lobes and anterior right frontal lobe. New large dystrophic calcifications in the right frontal lobe. New probable large lacunar infarct involving the posterior right caudate head, anterior limb of the internal capsule, and right lentiform nucleus. No brain herniation. 2-3 mm left subfalcine shift. No intracranial hemorrhage. Cerebral ventricles: No ventriculomegaly. Paranasal sinuses: Visualized sinuses are unremarkable. No fluid levels. Mastoid air cells: Visualized mastoid air cells are well aerated. Bones: Right frontal craniotomy defect with multiple plates and screws. [place] hole in the right frontal calvarium. Soft tissues: Unremarkable. CT/CT head wo con* [id number] IMPRESSION: 1. The previous mass in the parafalcine right frontal lobe appears significantly smaller in size, consistent with prior resection and treatment. This study is insensitive for detection of the mass or evaluating the size due to lack of IV contrast. 2. Extensive vasogenic edema in the right frontal, parietal, and temporal lobes. 3. New regions of encephalomalacia in the anterior right frontal lobe and parafalcine right parietal and occipital lobes. 4. New probable large lacunar infarct involving the right caudate head, anterior limb of the right internal capsule, and right lentiform nucleus. 5. Further evaluation of these findings with brain MRI is recommended.
--- NOTE | 2023-08-20 18:56 | ED_ITS ---
HPI - Altered Mental Status 2 General: Chief Complaint: Altered Mental Status Stated Complaint: sob, says having hard time walking Time Seen by Provider: 08/20/23 18:50 History of Present Illness: 38-year-old female with a history of rec urrent glioblastoma (according to her ) that has had multiple surgeries and has been getting chemotherapy and had recently stopped chemotherapy is about start again who presents to the emergency room with falls and some confusion. She does not appear to have anything focal on exam. No focal motor deficits. She has a GCS of 15. She does seem slightly confused at times. She follows commands and is oriented to her to the place. No known fevers. Patient says he called their oncologist and they told him to come to the emergency room. Review of Systems 2 Narrative: Constitutional symptoms: Negative except as documented in HPI. Skin symptoms: Negative except as documented in HPI. Eye symptoms: Negative except as documented in HPI. ENMT symptoms: Negative except as documented in HPI. Respiratory symptoms: Negative except as documented in HPI. Cardiovascular symptoms: Negative except as documented in HPI. Gastrointestinal symptoms: Negative except as documented in HPI. Genitourinary symptoms: Negative except as documented in HPI. Musculoskeletal symptoms: Negative except as documented in HPI. Neurologic symptoms: Negative except as documented in HPI. Psychiatric symptoms: Negative except as documented in HPI. Endocrine symptoms: Negative except as documented in HPI. PFSH ED 2 PFSH: Medical History COPD (chronic obstructive pulmonary disease) Brain tumor Social History Smoking and tobacco/nicotine status: current every day tobacco/nicotine user Physical Exam 2 Narrative: General: Alert, no acute distress. Skin: Warm, dry. Head: Normocephalic, atraumatic. Neck: Supple, trachea midline. Eye: Extraocular movements are intact. Ears, nose, mouth and throat: mucosa moist. Cardiovascular: Regular, Normal peripheral perfusion. Respiratory: Lungs are clear to auscultation, respirations are non-labored, breath sounds are equal, Symmetrical chest wall expansion. Gastrointestinal: Soft, Nontender, Non distended, Normal bowel sounds. Musculoskeletal: Normal ROM, no deformity. Neurological: Alert and oriented, No focal neurological deficit observed. Psychiatric: Cooperative, appropriate mood & affect. Course 2 Vital Signs: Vital signs: Vital Signs Temperature 98.1 F 08/20/23 17:12 Pulse Rate 96 08/20/23 21:00 Respiratory Rate 19 H 08/20/23 19:11 Blood Pressure 159/103 08/20/23 21:00 Pulse Oximetry 99 08/20/23 21:00 Oxygen Delivery Me thod Room Air 08/20/23 21:00 MDM - Altered Mental Status Medical Decision Making Medical decision making: Differential diagnosis including but not limited to and based on the above HPI, review of systems and physical exam: Concern for intracranial hemorrhage or mass with mass effect. Concern for infections. Electrolyte abnormalities. Orders placed to evaluate differential diagnosis based on the above differential, HPI and physical exam Lab Review: Laboratory results were reviewed and interpreted by myself the emergency room physician. Patient has some mild leukocytosis with a white count of 15.6. Hemoglobin is 12.8. BUN and creatinine are 20 and 0.5. Most noted her sodium is 120. Her last measurement was 136 About a year ago. CT of the head without contrast: Results are listed below. She has decreased in the parafalcine right frontal lobe mass. Which would be consistent with treatment. She has extensive vasogenic edema in the right frontal parietal and temporal lobes. New regions of encephalomalacia in the anterior right frontal lobe and parafalcine right parietal and occipital lobes. New probable large lacunar infarct involving the right caudate head, anterior limb and the right internal capsule. However we do not have any imaging since prior to the initiation of treatment surgery. I reviewed the patient's medical record. Reexamination: Patient remained stable. She follows commands. She expresses understanding. No increased work of breathing. I do not see any focal motor deficits. I discussed the findings with her as well and he agrees with transfer for emergency. Assessment and plan: Hyponatremia Recurrent glioblastoma Vasogenic edema -Patient has been accepted to [facility] for evaluation and treatment by oncology and neurosurgery if needed. - Discussed findings and plan with patient. Answered any questions. - All laboratory values were reviewed and interpreted personally by myself, the ER physician - All imaging was reviewed and interpreted personally by myself, the ER physician. - Evaluation and treatment of this problem were appropriate in the emergency setting Lab Data 08/20/23 18:44 08/20/23 18:[address] 08/20/23 18:54 IMPRESSION: 1. The previous mass in the parafalcine right frontal lobe appears significantly smaller in size, consistent with prior resection and treatment. This study is insensitive for detection of the mass or evaluating the size due to lack of IV contrast. 2. Extensive vasogenic edema in the right frontal, parietal, and temporal lobes. 3. New regions of encephalomalacia in the anterior right frontal lobe and parafalcine right parietal and occipital lobes. 4. New probable large lacunar infarct involving the right caudate head, anterior limb of the right internal capsule, and right lentiform nucleus. 5. Further evaluation of these findings with brain MRI is recommended. Laboratory Results WBC 15.57 10^3/uL (3.29-11.43) H 08/20/23 18:44 RBC 4.06 10^6/uL (3.85-5.65) 08/20/23 18:44 Hgb 12.80 g/dL (11.27-16.99) 08/20/23 18:44 Hct 37.7 % (36-47) 08/20/23 18:44 MCV 92.9 fl (85-98) 08/20/23 18:44 MCH 31.5 pg (27-33) 08/20/23 18:44 MCHC 34.0 g/dL (30-55) 08/20/23 18:44 RDW 15.5 % (12.1-15.1) H 08/20/23 18:44 Plt Count 262 10^3/cmm (157-399) 08/20/23 18:44 MPV 9.9 fL (7.4-10.4) 08/20/23 18:44 Neut % (Auto) 67.0 % 08/20/23 18:44 Lymph % (Auto) 16.7 % 08/20/23 18:44 [place] % (Auto) 11.6 % 08/20/23 18:44 Eos % (Auto) 0.8 % 08/20/23 18:44 Baso % (Auto) 0.4 % 08/20/23 18:44 Neut # (Auto) 10.44 10^3/uL (1.8-7.7) H 08/20/23 18:44 Lymph # (Auto) 2.6 10^3/uL (0.8-4.8) 08/20/23 18:44 [place] # (Auto) 1.8 10^3/uL (0.2-0.9) H 08/20/23 18:44 Eos # (Auto) 0.1 10^3/uL (0.0-0.8) 08/20/23 18:44 Baso # (Auto) 0.1 10^3/uL (0.0-0.1) 08/20/23 18:44 Nucleated RBC % (auto) 0 % 08/20/23 18:44 Nucleated RBCs # 0.0 /100WBC 08/20/23 18:44 Sodium 120 mmol/L (136-145) L 08/20/23 18:44 Potassium 3.9 mmol/L (3.5-5.1) 08/20/23 18:44 Chloride 83 mmol/L (98-107) L 08/20/23 18:44 Carbon Dioxide 23 mmol/L (22-29) 08/20/23 18:44 Anion Gap 17.9 (5-19) 08/20/23 18:44 BUN 20 mg/dL (6-20) 08/20/23 18:44 Creatinine 0.5 mg/dL (0.5-0.9) 08/20/23 18:44 GFR Calculation 139.6 mL/min (90-130) H 08/20/23 18:44 Glucose 94 mg/dL (65-115) 08/20/23 18:44 Calculated Osmolality 252 mOsm/kg (285-295) L 08/20/23 18:44 Calcium 9.0 mg/dL (8.5-10.5) 08/20/23 18:44 Total Bilirubin 0.4 mg/dL (0.15-1.2) 08/20/23 18:44 AST 17 U/L (0-32) 08/20/23 18:44 ALT 29 U/L (0-33) 08/20/23 18:44 Alkaline Phosphatase 57 U/L (35-105) 08/20/23 18:44 Total Protein 7.3 g/dL (6.6-8.7) 08/20/23 18:44 Albumin 3.9 g/dL (3.5-5.2) 08/20/23 18:44 Globulin 3.4 g/dL (1.3-4.6) 08/20/23 18:44 Urine Color Yellow (Yellow) 08/20/23 19:20 Urine Appearance Cloudy (CLEAR) A 08/20/23 19:20 Urine pH 5 (5-7) 08/20/23 19:20 Ur Specific [place] 1.020 (1.005-1.030) 08/20/23 19:20 Urine Protein Trace (Negative) 08/20/23 19:20 Urine Glucose (UA) Norm (Normal) 08/20/23 19:20 Urine Ketones 1+ (Negative) H 08/20/23 19:20 Urine Blood 2+ (Negative) H 08/20/23 19:20 Urine Nitrate Negative (Negative) 08/20/23 19:20 Urine Bilirubin Neg (Negative) 08/20/23 19:20 Urine Urobilinogen Norm mg/dL (Negative) 08/20/23 19:20 Ur Leukocyte Esterase 1+ (Negative) H 08/20/23 19:20 Urine RBC 0-4 /hpf (0-2) H 08/20/23 19:20 Urine WBC 0-4 /hpf (0-5) H 08/20/23 19:20 Ur Squamous Epith Cells 10-15 /hpf (0-5) H 08/20/23 19:20 Amorphous Sediment 1+ /hpf 08/20/23 19:20 Urine Bacteria 2+ /hpf (NONE) H 08/20/23 19:20 All radiology interpretation(s) finalized by discharge Discharge Plan Discharge Patient Disposition: Xfer Short-Term Hosp Clinical Impression: Glioblastoma, Hyponatremia, Vasogenic cerebral edema Condition: Stable Referrals: Becky Ruiz MD [Primary Care Provider] - Patient Instructions: Altered Mental Status (ED) Coding Level of Care Code ED [employer]
[2023-08-20 19:06] LABS: Alanine Aminotransferase 29 U/L (0-33); Albumin Level 3.9 g/dL (3.5-5.2); Alkaline Phosphatase 57 U/L (35-105); Anion Gap 17.9 (5-19); Aspartate Amino Transferase 17 U/L (0-32); Blood Urea Nitrogen 20 mg/dL (6-20); Carbon Dioxide 23 mmol/L (22-29); Chloride 83 mmol/L (98-107); Creatinine Clr Calc Pharmacy 218.3087; Globulin 3.4 g/dL (1.3-4.6); Glomerular Filtration Rate 139.6 mL/min (90-130); Glucose 94 mg/dL (65-115); Osmolality Calculated 252 mOsm/kg (285-295); Potassium 3.9 mmol/L (3.5-5.1); Sodium 120 mmol/L (136-145); Total Bilirubin 0.4 mg/dL (0.15-1.2); Total Protein 7.3 g/dL (6.6-8.7)
[2023-08-20 19:54] LABS: Protein Urine Trace (Negative); Urine Appearance Cloudy (CLEAR); Urine Color Yellow (Yellow); pH Urine 5 (5-7)
[2023-08-20 19:55] LABS: Add Urine Microscopic? YES; Bacteria Urine 2+ /hpf; Bilirubin Urine Neg (Negative); Blood Urine 2+ (Negative); Glucose Urine UA Norm (Normal); Ketones Urine 1+ (Negative); Leukocyte Esterase Urine 1+ (Negative); Nitrate Urine Negative (Negative); RBC Urine 0-4 /hpf (0-2); Urobilinogen Urine Norm (Negative); WBC Urine 0-4 /hpf (0-5)
[2023-08-20 19:56] LABS: Amorphous Sediment Urine 1+ /hpf
[2023-08-20 19:57] LABS: Add Urine Culture? No
--- NOTE | 2023-08-20 21:33 | PC.NURSE ---
REPORT CALLED TO JARON ESPINOZA TO CAMDEN SANCHEZ RN AT 2130.
== END 2023-08-20 22:36 | disposition short-term general hospital (02) ==
PROVIDERS: Nurse Practitioner Family; Emergency Provider Emergency Medicine; PCP Family Medicine
DX: E87.1 Hypo-osmolality and hyponatremia (principal); C71.1 Malignant neoplasm of frontal lobe; G93.6 Cerebral edema; J44.9 Chronic obstructive pulmonary disease, unspecified; Z72.0 Tobacco use; Z79.60 Long term (current) use of unspecified immunomodulators and immunosuppressants
CPT/HCPCS: 36415; 70450; 80053; 81001; 85025; 99284

== ENCOUNTER 2023-08-31 10:22 | Emergency (ER) | payer MEDICAID, SELFPAY ==
[2023-08-31] VITALS (159 sets, daily range): BP systolic 103–203; BP diastolic 53–171; PULSE 61–197; RESP 12–33; TEMP 36.9; O2SAT 87–100; BMI 42.7
--- NOTE | 2023-08-31 10:30 | XRR_ITS ---
PROCEDURE INFORMATION: Exam: XR Chest Exam date and time: 08/31/2023 10:43 AM Age: 38 years old Clinical indication: Other: AMS; Additional info: Ams/brain CA TECHNIQUE: Imaging protocol: Radiologic exam of the chest. Views: 1 view. COMPARISON: CT angio chest PE protcl [id number] 06/07/2022 12:51 PM FINDINGS: Lungs: Unremarkable. No consolidation. Pleural spaces: Unremarkable. No pleural effusion. No pneumothorax. Heart/Mediastinum: Unremarkable. No cardiomegaly. Bones/joints: Unremarkable. XR/XR chest 1V portable [id number] IMPRESSION: No acute findings.
--- NOTE | 2023-08-31 10:30 | CTR_ITS ---
PROCEDURE INFORMATION: Exam: CT Head Without Contrast Exam date and time: 08/31/2023 10:46 AM Age: 38 years old Clinical indication: Altered mental status/memory loss; Prior surgery; Surgery date: 6+ months; Surgery type: Brain; Additional info: AMS TECHNIQUE: Imaging protocol: Computed tomography of the head without contrast. Radiation optimization: All CT scans at this facility use at least one of these dose optimization techniques: automated exposure control; mA and/or kV adjustment per patient size (includes targeted exams where dose is matched to clinical indication); or iterative reconstruction. COMPARISON: CT head wo con* [id number] 08/20/2023 7:00 PM RADIATION DOSE METRICS: Total DLP (mGy-cm): 875.8 FINDINGS: Brain: Extensive vasogenic edema involving right frontal, temporal lobes and basal ganglia with effacement of lateral ventricles, minimal progression compared to previous study. Linear calcifications in right frontal lobe again seen. Minimal midline shift to left anteriorly no acute hemorrhage. is similar to previous study. Left frontal hypodensities in the inferior medial aspect is not significantly changed. Cerebral ventricles: Effacement of lateral ventricles secondary to edema and mass effect of right frontal, temporal and basal ganglia region abnormality show progression. Paranasal sinuses: Minimal mucosal thickening of ethmoid air cells. No fluid levels. Mastoid air cells: Visualized mastoid air cells are well aerated. Bones: Bilateral frontal craniotomy changes again noted. No acute fracture. Soft tissues: Unremarkable. CT/CT head wo con* [id number] IMPRESSION: Extensive vasogenic edema in right frontal, temporal and basal ganglia region causing mass effect and effacement of ventricles show minimal progression. No acute hemorrhage. Recommend MRI for further evaluation.
[2023-08-31 10:50] LABS: Basophils % 0.2 %; Eosinophils % 0.1 %; Hematocrit 33.6 % (36-47); Lymphocytes # 2.3 10^3/uL (0.8-4.8); Lymphocytes % 11.9 %; Mean Corpuscular HGB Conc 34.2 g/dL (30-55); Mean Corpuscular Hemoglobin 31.3 pg (27-33); Mean Corpuscular Volume 91.3 fl (85-98); Mean Platelet Volume 9.3 fL (7.4-10.4); Monocytes # 1.8 10^3/uL (0.2-0.9); Monocytes % 9.5 %; Neutrophils % 74.9 %; Nucleated Red Blood Cells % 0 %; Platelet Count 278 10^3/cmm (157-399); Red Blood Count 3.68 10^6/uL (3.85-5.65); Red Cell Distribution Width 15.5 % (12.1-15.1); White Blood Count 19.32 10^3/uL (3.29-11.43)
[2023-08-31 11:01] LABS: INR 0.93 (0.8-1.2)
[2023-08-31 11:02] LABS: Partial Thromboplastin Time 29.7 SECONDS (23.9-36.7)
[2023-08-31 11:06] LABS: Lactic Sepsis W/Reflex 1.1 mmol/L (0.5-2.2)
[2023-08-31] MEDS: sodium chloride 0.9% 1,000 ML 999 ML IV (11:16)
[2023-08-31 11:17] LABS: Thyroid Stimulating Hormone 23.88 uIU/mL (0.27-4.20)
--- NOTE | 2023-08-31 11:21 | ED_ITS ---
Documented by User: Carter Espinoza MD 08/31/23 22:24 HPI - Altered Mental Status 2 General: Chief Complaint: Altered Mental Status Stated Complaint: AMS Time Seen by Provider: 08/31/23 10:28 Source: EMS Mode of arrival: EMS Limitations: altered mental status History of Present Illness: Patient sent to hospital for altered mental status. Reportedly as recently as Friday she was walking around and talking and doing her thing though fatigued. Now since Friday she has permanent been bedbound and not eating or drinking not taking any of her medications. This morning patient cannot be aroused at all and was unresponsive so her called the ambulance. Patient arrives and is looking around but not responding to questions and not following commands. 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 HENMT: COMMON NORMALS: normocephalic, atraumatic, external ears normal and moist oral mucous membranes HEAD & SCALP: normocephalic and atraumatic E XTERNAL EAR: Yes external ears normal Eye: COMMON NORMALS: Equal, round and reactive pupils present, EOMs intact bilaterally and conjunctivae normal CONJUNCTIVA: Yes conjunctivae normal P UPIL: Yes Equal, round and reactive pupils present Neck/C-Spine: COMMON NORMALS: full ROM Chest: CHEST: Yes Symmetrical chest wall rise and No Surgical scars present (Chest) Resp: COMMON NORMALS: normal respiratory effort, No retractions, No use of accessory muscles and clear to auscultation bilaterally AUSCULTATION: clear to auscultation bilaterally Cardio: COMMON NORMALS: regular rate, regular rhythm, S1 normal heart sound present, S2 normal heart sound present, No gallops present (Cardio), No clicks present (Cardio), No murmurs present (Cardio) and No rub (Cardio) RATE: r egular rate RHYTHM: regular rhythm HEART SOUNDS: S1 normal heart sound present, S2 normal heart sound present and no murmurs PERIPHERAL PULSES: o ther (Radial pulses 2+ and symmetric) GI: COMMON NORMALS: Soft to palpation, non-tender and no masses INSPECTION: No abdominal distension PALPATION: Yes Soft to palpation, No Guarding due to palpation present (GI) and No Rebound tenderness present : COMMON NORMALS: Yes no CVA tenderness BLADDER/KIDNEY EXAM: Yes no CVA tenderness Back/Pelvis: COMMON NORMALS: no CVA tenderness Extremity: COMMON NORMALS: normal to inspection, full ROM, capillary refill normal and no clubbing, cyanosis or edema Neuro: SENSORIUM/ORIENTATION: Yes alert Psych: APPEARANCE: Yes well kempt Skin: COMMON NORMALS: no rashes or lesions noted, no wounds, turgor normal and no jaundice GENERAL SKIN EXAM: no rashes or lesions noted and turgor normal Course 2 Reevaluation(s): Reevaluation #1: Patient occasionally responding to questions. Very fatigued. Time: 16:48 Consultations: Consultation #1: Paged Dr. Faith; wants to speak with family prior to admitting patient. Time: 13:11 Consultation #2: Spoke with the oncology team at [facility] who accepts patient in transfer. The accepting attending will be Dr. Lilly. Time: 16:00 Consultation #3: Discussed with the hospitalist to consult and helping manage patient while waiting for bed at outside hospital Time: 20:06 Vital Signs: Vital signs: Vital Signs Temperature 98.5 F 08/31/23 10:23 Pulse Rate 68 09/01/23 00:35 Respiratory Rate 17 09/01/23 00:35 Blood Pressure 152/96 09/01/23 00:35 Pulse Oximetry 92 09/01/23 00:35 Oxygen Delivery Me thod Room Air 08/31/23 21:21 MDM - Altered Mental Status Medical Decision Making Patient has altered mental status, and based on valuation of this to be likely from multiple episodes of partial complex seizures versus focal seizures. Patient be tired and has a postictal state and then later will be able to be slightly more communicative. Reportedly she was walking just a few days ago. But since Friday has been able to eat or drink. Patient as such has not been giving her home steroid dose. Do not believe patient to be in a full myxedema coma however as an abundance of precaution and due to the likely lack of getting her levothyroxine as well as lack of her steroids going into a adrenal insufficiency course. Was given a mild dose of hydrocortisone and levothyroxine. Patient is found to have a possible UTI and so went ahead with Rocephin on that as well. Discussed the case with the hospitalist here who prefer patient be at a facility that has neurology. Patient was recently at [facility] and so a call was placed there. They reported they were 24 and 48 hours out on having an available bed and so a call was placed to [facility]. Spoke with the oncology team there who accepted the patient in transfer. Dr. Lilly is the accepting attending. Awaiting bed at [facility]. Patient has deteriorated to worsening mental status. GCS would be 7 currently. I have held off on intubating patient as she is maintaining her airway and I feel it is her chance of coming off the vent with her severity of disease would be minimal. I did add Cerebyx to her antiepileptics. So she is not 1.5 g of Keppra and 1 g of Cerebyx. I have consulted the hospitalist to help with management of the patient due to prolonged ED is awaiting transfer. And I have updated [facility] on her deterioration of status. At this time due to shift change I will be passing with the patient Dr. Sol here in the ER. Medical Records I reviewed the patient's medical records. Lab Data I reviewed the patient's lab results. 08/31/23 10:12 08/31/23 10:12 Radiology Impressions Chest X-Ray 08/31/23 10:30 IMPRESSION: No acute findings. Head CT 08/31/23 10:30 IMPRESSION: Extensive vasogenic edema in right frontal, temporal and basal ganglia region causing mass effect and effacement of ventricles show minimal progression. No acute hemorrhage. Recommend MRI for further evaluation. Laboratory Results WBC 19.32 10^3/uL (3.29-11.43) H 08/31/23 10:12 RBC 3.68 10^6/uL (3.85-5.65) L 08/31/23 10:12 Hgb 11.50 g/dL (11.27-16.99) 08/31/23 10:12 Hct 33.6 % (36-47) L 08/31/23 10:12 MCV 91.3 fl (85-98) 08/31/23 10:12 MCH 31.3 pg (27-33) 08/31/23 10:12 MCHC 34.2 g/dL (30-55) 08/31/23 10:12 RDW 15.5 % (12.1-15.1) H 08/31/23 10:12 Plt Count 278 10^3/cmm (157-399) 08/31/23 10:12 MPV 9.3 fL (7.4-10.4) 08/31/23 10:12 Neut % (Auto) 74.9 % 08/31/23 10:12 Lymph % (Auto) 11.9 % 08/31/23 10:12 Burnet % (Auto) 9.5 % 08/31/23 10:12 Eos % (Auto) 0.1 % 08/31/23 10:12 Baso % (Auto) 0.2 % 08/31/23 10:12 Neut # (Auto) 14.50 10^3/uL (1.8-7.7) H 08/31/23 10:12 Lymph # (Auto) 2.3 10^3/uL (0.8-4.8) 08/31/23 10:12 Burnet # (Auto) 1.8 10^3/uL (0.2-0.9) H 08/31/23 10:12 Eos # (Auto) 0.0 10^3/uL (0.0-0.8) 08/31/23 10:12 Baso # (Auto) 0.0 10^3/uL (0.0-0.1) 08/31/23 10:12 Nucleated RBC % (auto) 0 % 08/31/23 10:12 Nucleated RBCs # 0.0 /100WBC 08/31/23 10:12 PT 12.80 SECONDS (12.1-14.9) 08/31/23 10:12 INR 0.93 (0.8-1.2) 08/31/23 10:12 APTT 29.7 SECONDS (23.9-36.7) 08/31/23 10:12 Specimen Type Venous 08/31/23 12:52 Arya Test N/a 08/31/23 12:52 VBG pH 7.50 (7.32-7.42) H 08/31/23 12:52 VBG pCO2 35.6 mmHg (41-51) L 08/31/23 12:52 VBG pO2 40.3 mmHg (25-40) H 08/31/23 12:52 VBG HCO3 27.5 mmol/L (24-28) 08/31/23 12:52 VBG Base Excess 4.3 mmol/L (-3.0-3.0) H 08/31/23 12:52 VBG Hematocrit 35.5 % (37-47) L 08/31/23 12:52 O2 Delivery Device Room air 08/31/23 12:52 Director Wholesale ID [place] 08/31/23 12:52 Sodium 130 mmol/L (136-145) L 08/31/23 10:12 Potassium 4.2 mmol/L (3.5-5.1) 08/31/23 10:12 Chloride 88 mmol/L (98-107) L 08/31/23 10:12 Carbon Dioxide 27 mmol/L (22-29) 08/31/23 10:12 Anion Gap 19.2 (5-19) H 08/31/23 10:12 BUN 13 mg/dL (6-20) 08/31/23 10:12 Creatinine 0.4 mg/dL (0.5-0.9) L 08/31/23 10:12 GFR Calculation 180.6 mL/min (90-130) H 08/31/23 10:12 Glucose 96 mg/dL (65-115) 08/31/23 10:12 Calculated Osmolality 270 mOsm/kg (285-295) L 08/31/23 10:12 Lactic Acid 0.6 mmol/L (0.5-2.2) 08/31/23 22:59 Calcium 9.3 mg/dL (8.5-10.5) 08/31/23 10:12 Total Bilirubin 0.4 mg/dL (0.15-1.2) 08/31/23 10:12 AST 13 U/L (0-32) 08/31/23 10:12 ALT 25 U/L (0-33) 08/31/23 10:12 Alkaline Phosphatase 58 U/L (35-105) 08/31/23 10:12 Total Protein 6.6 g/dL (6.6-8.7) 08/31/23 10:12 Albumin 3.6 g/dL (3.5-5.2) 08/31/23 10:12 Globulin 3.0 g/dL (1.3-4.6) 08/31/23 10:12 Procalcitonin 0.09 ng/mL (0-0.5) 08/31/23 10:12 Procalcitonin 0.10 ng/mL (0-0.5) 08/31/23 10:12 TSH 23.88 uIU/mL (0.27-4.20) H 08/31/23 10:12 Free T4 1.39 ng/dL (0.82-1.77) 08/31/23 10:12 Urine Color Yellow (Yellow) 08/31/23 12:15 Urine Appearance Clear (CLEAR) 08/31/23 12:15 Urine pH 8 (5-7) H 08/31/23 12:15 Ur Specific [place] 1.010 (1.005-1.030) 08/31/23 12:15 Urine Protein Neg (Negative) 08/31/23 12:15 Urine Glucose (UA) Norm (Normal) 08/31/23 12:15 Urine Ketones Negative (Negative) 08/31/23 12:15 Urine Blood Neg (Negative) 08/31/23 12:15 Urine Nitrate Negative (Negative) 08/31/23 12:15 Urine Bilirubin Neg (Negative) 08/31/23 12:15 Prot Sulfosalicylic Acd Negative (Negative) 08/31/23 12:15 Urine Urobilinogen Norm mg/dL (Negative) 08/31/23 12:15 Ur Leukocyte Esterase 2+ (Negative) H 08/31/23 12:15 Urine RBC None /hpf (0-2) 08/31/23 12:15 Urine WBC 5-10 /hpf (0-5) H 08/31/23 12:15 Ur Squamous Epith Cells Rare /hpf (0-5) 08/31/23 12:15 Amorphous Sediment Not Reportable 08/31/23 12:15 Urine Bacteria 2+ /hpf (NONE) H 08/31/23 12:15 Ethyl Alcohol < 10 mg/dL (0-10) 08/31/23 10:12 All radiology interpretation(s) finalized by discharge ED provider radiology interpretation(s): Extensive vasogenic edema in the right frontal area on head CT. Chest x-ray done is unremarkable. Critical Care Time 2 Critical Care Time: Critical Care Time: Yes Total Critical Care Time: 55 Attestation: Documentation, bedside care, discussion with other in-house physicians, other outside hospital physicians. Discussion with transfer centers. Notation of sick conversations, placing orders and management of recurrent seizures. Discharge Plan Discharge Patient Disposition: Transfer to ED Clinical Impression: Vasogenic brain edema, Encephalopathy acute, Seizure, Glioblastoma, Acute adrenal insufficiency UTI (urinary tract infection) Qualifiers: Urinary tract infection type: acute cystitis Hematuria presence: without hematuria Qualified Code(s): N30.00 - Acute cystitis without hematuria Hypothyroidism Qualifiers: Hypothyroidism type: unspecified Qualified Code(s): E03.9 - Hypothyroidism, unspecified Condition: Stable Prescriptions: No Action temazepam 7.5 mg capsule PO levothyroxine 150 mcg capsule 150 mcg PO DAILY clindamycin HCl 300 mg capsule 300 mg PO TID 7 Days Qty: 21 0RF mupirocin 2 % ointment 1 applic topical TID 10 Days Qty: 15 0RF Rx Instructions: gluteal abscess' nystatin 100,000 unit/gram powder 1 applic topical BID 14 Days Qty: 30 0RF hydrocodone-acetaminophen 5-325 mg tablet 1 tab PO Q6H PRN (Reason: Pain) alprazolam 0.5 mg tablet 0.5 mg PO BID PRN (Reason: Anxiety) benzonatate 100 mg capsule 200 mg PO TID omeprazole 20 mg Capsule,Delayed Release(Dr/Ec) 20 mg PO DAILY lidocaine HCl 3 % cream 1 applic topical BID Advair Diskus 100-50 mcg/dose blister with device 1 inh inhalation BID Qty: 60 0RF Referrals: Becky Ruiz MD [Primary Care Provider] - Patient Instructions: Altered Mental Status (ED) Coding Level of Care Code ED Animal Shelter Supervisor for [facility]g Fwd Documented by User: Kimo Lewis Ebenezer, 09/01/23 00:46 HPI - Altered Mental Status 2 General: Chief Complaint: Altered Mental Status Stated Complaint: AMS Time Seen by Provider: 08/31/23 10:28 [facility] ED 2 PFSH: Medical History Hypothyroidism Glioblastoma COPD (chronic obstructive pulmonary disease) Social History Smoking and tobacco/nicotine status: current every day tobacco/nicotine user Course 2 Vital Signs: Vital signs: Vital Signs Temperature 98.5 F 08/31/23 10:23 Pulse Rate 68 09/01/23 00:35 Respiratory Rate 17 09/01/23 00:35 Blood Pressure 152/96 09/01/23 00:35 Pulse Oximetry 92 09/01/23 00:35 Oxygen Delivery Me thod Room Air 08/31/23 21:21 MDM - Altered Mental Status Medical Decision Making Patient has altered mental status, and based on valuation of this to be likely from multiple episodes of partial complex seizures versus focal seizures. Patient be tired and has a postictal state and then later will be able to be slightly more communicative. Reportedly she was walking just a few days ago. But since Friday has been able to eat or drink. Patient as such has not been giving her home steroid dose. Do not believe patient to be in a full myxedema coma however as an abundance of precaution and due to the likely lack of getting her levothyroxine as well as lack of her steroids going into a adrenal insufficiency course. Was given a mild dose of hydrocortisone and levothyroxine. Patient is found to have a possible UTI and so went ahead with Rocephin on that as well. Discussed the case with the hospitalist here who prefer patient be at a facility that has neurology. Patient was recently at [facility] and so a call was placed there. They reported they were 24 and 48 hours out on having an available bed and so a call was placed to [facility]. Spoke with the oncology team there who accepted the patient in transfer. Dr. Lilly is the accepting attending. Awaiting bed at [facility]. Patient has deteriorated to worsening mental status. GCS would be 7 currently. I have held off on intubating patient as she is maintaining her airway and I feel it is her chance of coming off the vent with her severity of disease would be minimal. I did add Cerebyx to her antiepileptics. So she is gotten 1.5 g of Keppra and 1 g of Cerebyx. I have consulted the hospitalist to help with management of the patient due to prolonged ED is awaiting transfer. And I have updated [facility] on her deterioration of status. At this time due to shift change I will be passing with the patient Dr. Sol here in the ER. 38-year-old female checked out to me at shift change. [facility]shmi also has notified us that a bed is available. Were trying to arrange transport. As this patient is deemed critical given her deteriorating status, we are attempting air ambulance transfer given the long transfer time. She will go by air or ground tonight. Lab Data 08/31/23 10:12 08/31/23 10:12 Radiology Impressions Chest X-Ray 08/31/23 10:30 IMPRESSION: No acute findings. Head CT 08/31/23 10:30 IMPRESSION: Extensive vasogenic edema in right frontal, temporal and basal ganglia region causing mass effect and effacement of ventricles show minimal progression. No acute hemorrhage. Recommend MRI for further evaluation. Laboratory Results WBC 19.32 10^3/uL (3.29-11.43) H 08/31/23 10:12 RBC 3.68 10^6/uL (3.85-5.65) L 08/31/23 10:12 Hgb 11.50 g/dL (11.27-16.99) 08/31/23 10:12 Hct 33.6 % (36-47) L 08/31/23 10:12 MCV 91.3 fl (85-98) 08/31/23 10:12 MCH 31.3 pg (27-33) 08/31/23 10:12 MCHC 34.2 g/dL (30-55) 08/31/23 10:12 RDW 15.5 % (12.1-15.1) H 08/31/23 10:12 Plt Count 278 10^3/cmm (157-399) 08/31/23 10:12 MPV 9.3 fL (7.4-10.4) 08/31/23 10:12 Neut % (Auto) 74.9 % 08/31/23 10:12 Lymph % (Auto) 11.9 % 08/31/23 10:12 Burnet % (Auto) 9.5 % 08/31/23 10:12 Eos % (Auto) 0.1 % 08/31/23 10:12 Baso % (Auto) 0.2 % 08/31/23 10:12 Neut # (Auto) 14.50 10^3/uL (1.8-7.7) H 08/31/23 10:12 Lymph # (Auto) 2.3 10^3/uL (0.8-4.8) 08/31/23 10:12 Burnet # (Auto) 1.8 10^3/uL (0.2-0.9) H 08/31/23 10:12 Eos # (Auto) 0.0 10^3/uL (0.0-0.8) 08/31/23 10:12 Baso # (Auto) 0.0 10^3/uL (0.0-0.1) 08/31/23 10:12 Nucleated RBC % (auto) 0 % 08/31/23 10:12 Nucleated RBCs # 0.0 /100WBC 08/31/23 10:12 PT 12.80 SECONDS (12.1-14.9) 08/31/23 10:12 INR 0.93 (0.8-1.2) 08/31/23 10:12 APTT 29.7 SECONDS (23.9-36.7) 08/31/23 10:12 Specimen Type Venous 08/31/23 12:52 Arya Test N/a 08/31/23 12:52 VBG pH 7.50 (7.32-7.42) H 08/31/23 12:52 VBG pCO2 35.6 mmHg (41-51) L 08/31/23 12:52 VBG pO2 40.3 mmHg (25-40) H 08/31/23 12:52 VBG HCO3 27.5 mmol/L (24-28) 08/31/23 12:52 VBG Base Excess 4.3 mmol/L (-3.0-3.0) H 08/31/23 12:52 VBG Hematocrit 35.5 % (37-47) L 08/31/23 12:52 O2 Delivery Device Room air 08/31/23 12:52 Director Wholesale ID [place] 08/31/23 12:52 Sodium 130 mmol/L (136-145) L 08/31/23 10:12 Potassium 4.2 mmol/L (3.5-5.1) 08/31/23 10:12 Chloride 88 mmol/L (98-107) L 08/31/23 10:12 Carbon Dioxide 27 mmol/L (22-29) 08/31/23 10:12 Anion Gap 19.2 (5-19) H 08/31/23 10:12 BUN 13 mg/dL (6-20) 08/31/23 10:12 Creatinine 0.4 mg/dL (0.5-0.9) L 08/31/23 10:12 GFR Calculation 180.6 mL/min (90-130) H 08/31/23 10:12 Glucose 96 mg/dL (65-115) 08/31/23 10:12 Calculated Osmolality 270 mOsm/kg (285-295) L 08/31/23 10:12 Lactic Acid 0.6 mmol/L (0.5-2.2) 08/31/23 22:59 Calcium 9.3 mg/dL (8.5-10.5) 08/31/23 10:12 Total Bilirubin 0.4 mg/dL (0.15-1.2) 08/31/23 10:12 AST 13 U/L (0-32) 08/31/23 10:12 ALT 25 U/L (0-33) 08/31/23 10:12 Alkaline Phosphatase 58 U/L (35-105) 08/31/23 10:12 Total Protein 6.6 g/dL (6.6-8.7) 08/31/23 10:12 Albumin 3.6 g/dL (3.5-5.2) 08/31/23 10:12 Globulin 3.0 g/dL (1.3-4.6) 08/31/23 10:12 Procalcitonin 0.09 ng/mL (0-0.5) 08/31/23 10:12 Procalcitonin 0.10 ng/mL (0-0.5) 08/31/23 10:12 TSH 23.88 uIU/mL (0.27-4.20) H 08/31/23 10:12 Free T4 1.39 ng/dL (0.82-1.77) 08/31/23 10:12 Urine Color Yellow (Yellow) 08/31/23 12:15 Urine Appearance Clear (CLEAR) 08/31/23 12:15 Urine pH 8 (5-7) H 08/31/23 12:15 Ur Specific [place] 1.010 (1.005-1.030) 08/31/23 12:15 Urine Protein Neg (Negative) 08/31/23 12:15 Urine Glucose (UA) Norm (Normal) 08/31/23 12:15 Urine Ketones Negative (Negative) 08/31/23 12:15 Urine Blood Neg (Negative) 08/31/23 12:15 Urine Nitrate Negative (Negative) 08/31/23 12:15 Urine Bilirubin Neg (Negative) 08/31/23 12:15 Prot Sulfosalicylic Acd Negative (Negative) 08/31/23 12:15 Urine Urobilinogen Norm mg/dL (Negative) 08/31/23 12:15 Ur Leukocyte Esterase 2+ (Negative) H 08/31/23 12:15 Urine RBC None /hpf (0-2) 08/31/23 12:15 Urine WBC 5-10 /hpf (0-5) H 08/31/23 12:15 Ur Squamous Epith Cells Rare /hpf (0-5) 08/31/23 12:15 Amorphous Sediment Not Reportable 08/31/23 12:15 Urine Bacteria 2+ /hpf (NONE) H 08/31/23 12:15 Ethyl Alcohol < 10 mg/dL (0-10) 08/31/23 10:12 Discharge Plan Discharge Patient Disposition: Transfer to ED Clinical Impression: Vasogenic brain edema, Encephalopathy acute, Seizure, Glioblastoma, Acute adrenal insufficiency UTI (urinary tract infection) Qualifiers: Urinary tract infection type: acute cystitis Hematuria presence: without hematuria Qualified Code(s): N30.00 - Acute cystitis without hematuria Hypothyroidism Qualifiers: Hypothyroidism type: unspecified Qualified Code(s): E03.9 - Hypothyroidism, unspecified Condition: Stable Prescriptions: No Action temazepam 7.5 mg capsule PO levothyroxine 150 mcg capsule 150 mcg PO DAILY clindamycin HCl 300 mg capsule 300 mg PO TID 7 Days Qty: 21 0RF mupirocin 2 % ointment 1 applic topical TID 10 Days Qty: 15 0RF Rx Instructions: gluteal abscess' nystatin 100,000 unit/gram powder 1 applic topical BID 14 Days Qty: 30 0RF hydrocodone-acetaminophen 5-325 mg tablet 1 tab PO Q6H PRN (Reason: Pain) alprazolam 0.5 mg tablet 0.5 mg PO BID PRN (Reason: Anxiety) benzonatate 100 mg capsule 200 mg PO TID omeprazole 20 mg Capsule,Delayed Release(Dr/Ec) 20 mg PO DAILY lidocaine HCl 3 % cream 1 applic topical BID Advair Diskus 100-50 mcg/dose blister with device 1 inh inhalation BID Qty: 60 0RF Referrals: Becky Ruiz MD [Primary Care Provider] - Patient Instructions: Altered Mental Status (ED) Coding Level of Care Code ED Animal Shelter Supervisor for [place]
[2023-08-31 11:28] LABS: Alanine Aminotransferase 25 U/L (0-33); Albumin Level 3.6 g/dL (3.5-5.2); Alkaline Phosphatase 58 U/L (35-105); Aspartate Amino Transferase 13 U/L (0-32); Blood Urea Nitrogen 13 mg/dL (6-20); Calcium 9.3 mg/dL (8.5-10.5); Carbon Dioxide 27 mmol/L (22-29); Chloride 88 mmol/L (98-107); Glomerular Filtration Rate 180.6 mL/min (90-130); Glucose 96 mg/dL (65-115); Osmolality Calculated 270 mOsm/kg (285-295); Sodium 130 mmol/L (136-145); Total Bilirubin 0.4 mg/dL (0.15-1.2); Total Protein 6.6 g/dL (6.6-8.7)
[2023-08-31 11:35] LABS: Alcohol Level < 10 mg/dL (0-10); Creatinine Clr Calc Pharmacy 205.7596
[2023-08-31 11:38] LABS: Anion Gap 19.2 (5-19); Potassium 4.2 mmol/L (3.5-5.1)
[2023-08-31] MEDS: hydrocortisone 100 mg/2 mL SDV 50 MG IVP (12:04)
[2023-08-31] MEDS: levothyroxine 100 mcg/mL SDV 200 MCG IVP (12:22)
[2023-08-31 12:56] LABS: Base Excess VBG 4.3 mmol/L (-3.0-3.0); Blood Gas Operator Identificat WALCI; Blood Gas Sample Type Venous; HCO3 VBG 27.5 mmol/L (24-28); Oxygen Device ROOM AIR; PCO2 VBG 35.6 mmHg (41-51); PO2 VBG 40.3 mmHg (25-40); Venous Blood Gas Hematocrit 35.5 % (37-47)
[2023-08-31 13:20] LABS: Bilirubin Urine Neg (Negative); Blood Urine Neg (Negative); Glucose Urine UA Norm (Normal); Ketones Urine Negative (Negative); Leukocyte Esterase Urine 2+ (Negative); Nitrate Urine Negative (Negative); Protein Urine Neg (Negative); Sulfosalicylic Acid Urine Negative (Negative); Urine Appearance Clear (CLEAR); Urine Color Yellow (Yellow); Urobilinogen Urine Norm (Negative); pH Urine 8 (5-7)
[2023-08-31 13:21] LABS: Add Urine Culture? Yes; Add Urine Microscopic? YES; Bacteria Urine 2+ /hpf; Squamous Epithelial Cell Urine RARE /hpf (0-5)
[2023-08-31] MEDS: cefTRIAXone 1,000 MG in sodium chloride 0.9% (plus) 50 ML 100 MG IV (13:58)
[2023-08-31] MEDS: levETIRAcetam 1,500 MG/100 ML PREMIX 400 MG IV (14:54)
[2023-08-31] MEDS: hyDRALAzine 20 mg/mL INJ 1 mL 10 MG IVP (15:36)
[2023-08-31] MEDS: dexamethasone 4 mg/mL INJ IVP ×2 (15:37→21:31)
--- NOTE | 2023-08-31 20:13 | P.CONIM_ITS ---
Providers/Reason For Consult 2 Consulting Physician/Specialty*: Internal Medicine Reason for Consult*: Medical Management Attending Physician: Olga Primary Care Provider: Becky Ruiz MD History of Present Illness History of Present Illness Zita Diaz is a 38 year old female with a past medical history significant for glioblastoma for which she follows at [facility], COPD, hypothyroidism, and GERD presents to the emergency department with altered mental status. Upon assessment, patient is awake. Her speech is garbled and not understandable. History is therefore obtained from discussion with ED provider for collateral information and chart review. No family is bedside on my evaluation. Per report, she was doing relatively well as of last Friday. At that time she was reportedly still walking and talking appropriately. She has had issues with fatigue recently given her underlying elements. Beginning on Friday, she got markedly more weak. She has been reportedly bedbound since Friday. She has had poor oral intake to both solids and liquids since Friday. She reportedly cannot be aroused for which the called EMS. Patient is awake. She looks around the room on my assessment. She has some limited garbled speech to my questions which is incomprehensible. She is unable to communicate nonverbally as well. This severely limits history from the patient. In the emergency room, vitals significant for tachypnea. Labs revealed persistent leukocytosis, hyponatremia, hypochloremia, and elevated TSH. Urinalysis showed 2+ leukocyte esterase with 5-10 WBCs and 2+ bacteria. Chest x-ray was negative for acute findings. Head CT showed extensive vasogenic edema in the right frontal, temporal and basal ganglia region causing mass effect and effacement of the ventricles show minimal progression. There is no acute hemorrhage. Patient was discussed with oncology at [facility]'s where she is being treated for her glioblastoma. Accepted for transfer pending bed availability. Apparently, her symptoms have shown some waxing waning over the course of the past days concerning for seizure disorder. She was started on Keppra as well as dexamethasone in the emergency department. Attempted to obtain a complete review of systems, past medical history, past surgical history, family history, social history; however unable to due to patient's current encephalopathy secondary to vasogenic edema. Review of Systems 2 Narrative: Attempted to obtain a complete review of systems, but unable to due to patient's current mentation and inability to provide answers to ROS. Medications/Allergies Home Medications Medication Instructions Recorded Confirmed Last Taken Type alprazolam 0.5 mg tablet 0.5 mg PO BID PRN Anxiety 06/07/22 05/04/23 Unknown History benzonatate 100 mg capsule 200 mg PO TID 06/07/22 05/04/23 06/06/22 History fluticasone 100 mcg-salmeterol 50 1 inh inhalation BID #60 ea 06/07/22 05/04/23 Unknown Rx mcg/dose blistr powdr for inhalation (Advair Diskus) hydrocodone 5 mg-acetaminophen 325 1 tab PO Q6H PRN Pain 06/07/22 05/04/23 Unknown History mg tablet lidocaine HCl 3 % topical cream 1 applic topical BID 06/07/22 05/04/23 06/06/22 History omeprazole 20 mg capsule,delayed 20 mg PO DAILY 06/07/22 05/04/23 06/06/22 History release clindamycin HCl 300 mg capsule 300 mg PO TID 7 days #21 caps 05/04/23 05/04/23 Unknown Rx levothyroxine 150 mcg capsule 150 mcg PO DAILY 05/04/23 05/04/23 Unknown History mupirocin 2 % topical ointment 1 applic topical TID 10 days #15 05/04/23 05/04/23 Unknown Rx grams nystatin 100,000 unit/gram topical 1 applic topical BID 14 days #30 05/04/23 05/04/23 Unknown Rx powder grams temazepam 7.5 mg capsule mg PO 05/04/23 05/04/23 Unknown History Allergies Allergy/AdvReac Type Severity Reaction Status Date / Time aspirin Allergy ALGY-Difficulty Verified 08/20/23 17:17 Breathing doxycycline Allergy nausea Verified 08/20/23 17:17 Penicillins Allergy nausea Verified 08/20/23 17:17 Sulfa (Sulfonamide Allergy nausea Verified 08/20/23 17:17 Antibiotics) PFSH Acute 2 PFSH: Medical History Hypothyroidism Glioblastoma COPD (chronic obstructive pulmonary disease) Social History Smoking and tobacco/nicotine status: current every day tobacco/nicotine user Vitals/I&O/Wt Last Vital Signs Temp 98.5 F 08/31/23 10:23 Pulse 100 08/31/23 19:00 Resp 22 H 08/31/23 19:00 BP 141/103 08/31/23 18:55 Pulse Ox 96 08/31/23 19:00 O2 Del Method Room Air 08/31/23 18:30 08/31/23 08/31/23 08/31/23 06:59 14:59 22:59 Intake Total 1050 / 1050 100 / 1150 Output Total 950 / 950 Balance 1050 / 1050 -850 / 200 Weight last 48 hrs Weight 99.337 kg Physical Exam 2 Narrative: General: Patient is awake. Head: Normocephalic. Atraumatic. Neck: No JVD. Cardiovascular: RRR. No gallops. No murmurs. Lungs: Clear to auscultation, no use of accessory muscles, no crackles or wheezes. Slight tachypnea. Skin: No jaundice. No rashes. Abdomen: Normal bowel sounds, abdomen soft and nontender. Genito Urinary: Urinary catheter Extremities: No cyanosis or clubbing. Musculoskeletal: No swollen or erythematous joints. Neurological: Moves all 4 extremities. No myoclonus. Poverty of speech. Speech that is produced is incomprehensible. Urinary Catheter Management: Boogie: Cath Placed During This Visit: yes Reason for Continuing Indwelling Catheter: Accurate Measurement of Urinary Output in Critically Ill Patients Urinary Catheter Date of Insertion: 08/31/23 Data 08/31/23 10:12 08/31/23 10:12 A&P Assessment and plan (1) Glioblastoma: Agree with transfer to [facility] (2) Vasogenic brain edema: Vasogenic edema w/ decreased responsiveness Status post dexamethasone 10 mg IVP Start dexamethasone 4 mg IV Q6H Serial neurochecks Seizure/Fall/Aspiration precautions Consider brain MRI if still here on Friday day shift unless [facility] prefers to do at their facility (3) Seizure: Suspected seizure Status post Keppra 1.5 gm IVP Continue with Keppra 1 gm IV Q12H Seizure precautions Ativan if needed Recommend inpatient neurology consult when available Consider EEG when available (4) UTI (urinary tract infection): UA w/ leukocyte esterase and bacteria Follow urine culture Continue ceftriaxone Qualifiers: Hematuria presence: without hematuria Urinary tract infection type: a cute cystitis Qualified Code(s): N30.00 - Acute cystitis without hematuria (5) Hypothyroidism: TSH 23.88 Status post levothyroxine 200 mcg IVP in ED Home dose appears to be Synthroid 150 mcg Back order free T4 to help guide treatment Qualifiers: Hypothyroidism type: unspecified Qualified Code(s): E03.9 - Hypothyroidism, unspecified (6) COPD (chronic obstructive pulmonary disease): Hold home Advair Diskus Pulmicort nebs for maintenance therapy DuoNebs PRN (7) GERD (gastroesophageal reflux disease): Hold omeprazole IV PPI for gastric stress ulcer protection as well (8) Leukocytosis: Appears chronic, possibly related to underlying malignancy, associated treatment, chronic stress, tobacco use, etc Will check procal Treat underlying infectiono High dose steroids may worsen Consult Attestations 2 Medical Necessity Statement: Thank you for this consultation. Medicine will continue to follow until she transfers to [facility]. Coding Level of Care Code Acute Code for Chg Fwd Diagnoses Glioblastoma C71.9 Vasogenic brain edema G93.6 Seizure R56.9 UTI (urinary tract infection) N30.00 Hematuria presence: without hematuria Urinary tract infection type: acute cystitis Hypothyroidism E03.9 Hypothyroidism type: unspecified COPD (chronic obstructive pulmonary disease) J44.9 GERD (gastroesophageal reflux disease) K21.9 Leukocytosis D72.829
[2023-08-31 20:54] LABS: Procalcitonin 0.09 ng/mL (0-0.5)
[2023-08-31 21:18] LABS: Free T4 Free Thyroxine 1.39 ng/dL (0.82-1.77)
[2023-08-31] MEDS: pantoprazole 40 mg SDV IVP (21:31)
--- NOTE | 2023-08-31 21:36 | PC.NURSE ---
pt was turned onto her left side at this time. pts mouth was swabbed and she was covered back up at this time
[2023-08-31] MEDS: valproic acid inj 1,000 MG in sodium chloride 0.9% 50 ML 55 MG IV (22:45)
[2023-08-31 23:20] LABS: Lactic Sepsis W/Reflex 0.6 mmol/L (0.5-2.2)
[2023-09-01] VITALS: BP 178/94; PULSE 81; RESP 19; O2SAT 94
[2023-09-01 00:05] VITALS: BP 108/54; PULSE 85; O2SAT 90
[2023-09-01 00:10] VITALS: BP 147/100; PULSE 66; RESP 17; O2SAT 93
[2023-09-01 00:15] VITALS: BP 147/100; PULSE 65; RESP 17; O2SAT 92
[2023-09-01 00:35] VITALS: BP 152/96; PULSE 68; RESP 17; O2SAT 92
[2023-09-01] MEDS: sodium chloride 0.9% 1,000 ML 100 ML IV (01:12)
== END 2023-09-01 01:13 ==
PROVIDERS: Internal Medicine; Emergency Provider Emergency Medicine; PCP Family Medicine
DX: N30.00 Acute cystitis without hematuria (principal); E03.9 Hypothyroidism, unspecified; G93.6 Cerebral edema; G93.40 Encephalopathy, unspecified; C71.9 Malignant neoplasm of brain, unspecified; E27.40 Unspecified adrenocortical insufficiency; J44.9 Chronic obstructive pulmonary disease, unspecified; Z72.0 Tobacco use
CPT/HCPCS: 36415; 51702; 70450; 71045; 80053; 80307; 81001; 82803; 83605; 84145; 84439; 84443; 85025; 85610; 85730; 87077; 87086; 87186; 96365; 96366; 96367; 96375; 96376; 99291; C9113; J0360; J0696; J1100; J1720; J1953; J3490; J7030

== ENCOUNTER 2023-10-10 16:07 | Emergency (ER) | payer MEDICAID, SELFPAY ==
[2023-10-10] VITALS (10 sets, daily range): BP systolic 136–199; BP diastolic 63–164; PULSE 96–122; RESP 14–29; TEMP 37.3; O2SAT 97–100; BMI 41.3
--- NOTE | 2023-10-10 16:09 | XRR_ITS ---
PROCEDURE INFORMATION: Exam: XR Chest Exam date and time: 10/10/2023 4:17 PM Age: 38 years old Clinical indication: Shortness of breath TECHNIQUE: Imaging protocol: Radiologic exam of the chest. Views: 1 view. COMPARISON: CR (CHEST, ) 08/31/2023 10:43 AM FINDINGS: Lungs: Unremarkable. No consolidation. Pleural spaces: Unremarkable. No pleural effusion. No pneumothorax. Heart/Mediastinum: Unremarkable. No cardiomegaly. Bones/joints: Unremarkable. XR/XR chest 1V portable [id number] IMPRESSION: No acute findings.
--- NOTE | 2023-10-10 16:10 | ECG_ITS ---
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 Measurements Intervals [place] Rate: 147 P: 74 WV: 124 QRS: 72 QRSD: 81 T: 65 QT: 281 QTc: 441 Interpretive Statements SINUS TACHYCARDIA MINIMAL ST DEPRESSION [0.025+ mV ST DEPRESSION] No previous ECG available for comparison Electronically Signed On 10-10-2023 17:33:16 CDT by Rodney Sandhu M.D. [id number]
[2023-10-10 16:18] LABS: Basophils % 0.1 %; Eosinophils % 0.1 %; Hematocrit 34.9 % (36-47); Lymphocytes # 0.5 10^3/uL (0.8-4.8); Lymphocytes % 2.7 %; Mean Corpuscular Hemoglobin 30.8 pg (27-33); Mean Corpuscular Volume 93.6 fl (85-98); Mean Platelet Volume 8.4 fL (7.4-10.4); Monocytes # 0.7 10^3/uL (0.2-0.9); Monocytes % 3.6 %; Neutrophils % 88.5 %; Nucleated Red Blood Cells % 0 %; Platelet Count 180 10^3/cmm (157-399); Red Blood Count 3.73 10^6/uL (3.85-5.65); Red Cell Distribution Width 14.9 % (12.1-15.1); White Blood Count 19.21 10^3/uL (3.29-11.43)
[2023-10-10] MEDS: pantoprazole 40 mg SDV 80 MG IVP (16:25)
--- NOTE | 2023-10-10 16:28 | CTR_ITS ---
PROCEDURE INFORMATION: Exam: CT Head Without Contrast Exam date and time: 10/10/2023 5:25 PM Age: 38 years old Clinical indication: Altered mental status/memory loss; Prior surgery; Surgery date: 6+ months; Surgery type: Craniectomy; Patient HX: EMS arrival from [facility] for unresponsiveness and hemoptysis. History of glioblastoma and copd. ; Additional info: Unresponsive; Respiratory distress; Hypertension TECHNIQUE: Imaging protocol: Computed tomography of the head without contrast. Radiation optimization: All CT scans at this facility use at least one of these dose optimization techniques: automated exposure control; mA and/or kV adjustment per patient size (includes targeted exams where dose is matched to clinical indication); or iterative reconstruction. COMPARISON: CT head wo con* [id number] 08/31/2023 10:46 AM RADIATION DOSE METRICS: Total DLP (mGy-cm): 1094.29 FINDINGS: Brain: Extensive vasogenic edema is again suggested in the right cerebrum predominantly involving frontal lobe and basal ganglia as well as portions of right temporal lobe. There has been interval increase in mass effect characterized by effacement of the suprasellar cistern , greater shift of the midline to the left now measuring 1.3 cm, and more notable effacement of the frontal horn of right lateral ventricle and developing dilation of temporal horns of lateral ventricles. The 3rd ventricle is effaced. There is relatively extensive partial or complete sulcal effacement bilaterally in the cerebrum relative to previous study. Cerebral ventricles: See Brain finding. Paranasal sinuses: Mucosal thickening in ethmoid air cells. Mastoid air cells: Visualized mastoid air cells are well aerated. Bones: Calvarial surgical changes are seen with associated hardware anteriorly. Linear calcification is again seen deep to a craniotomy defect at right frontal lobe. Soft tissues: Unremarkable. CT/CT head wo con* [id number] IMPRESSION: Relatively prominent increase in mass effect at anterior right cerebrum with associated increase in intracranial pressure and developing hydrocephalus. THIS REPORT CONTAINS FINDINGS THAT MAY BE CRITICAL TO PATIENT CARE. The findings were verbally communicated via telephone conference with DALI BEJARANO at 6:35 PM CDT on 10/10/2023. The findings were acknowledged and understood.
--- NOTE | 2023-10-10 16:29 | W.ED.SOB ---
HPI - SOB/Dyspnea General: Chief Complaint: Airway/Esophagus Foreign Body Stated Complaint: coughing up blood Time Seen by Provider: 10/10/23 16:08 History of Present Illness: HPI Narrative: 38-year-old female with a history of glioblastoma, COPD, hypothyroidism, morbid obesity and report of multiple intracranial hemorrhages in the past who presents to the emergency room from [facility] after she was found down. She had thrown up but may have been blood. Her oxygen saturations were low. EMS believes she may have vomited and then aspirated. She was unresponsive. Intubation was attempted a couple of times and unsuccessful so she was placed on a laryngeal tube. On presentation here her oxygen saturations are good. Blood pressure is high. assisted is adamant that the patient is full code and wants to be intubated. They are also adamant that she is on hospice. Review of Systems General: Reports: ROS unobtainable due to endotracheal tube, ROS unobtainable due to medical condition and ROS unobtainable due to mental status [facility] ED PFSH: Medical History Hypothyroidism Glioblastoma COPD (chronic obstructive pulmonary disease) Social History (Updated 09/29/23 @ 16:10 by Rafael Schmidt RN) Smoking and tobacco/nicotine status: current every day tobacco/nicotine user Housing: Skilled Nursing Physical Exam Narrative: EXAM NARRATIVE: General: unresponsive, intubated. Vega facies. There is dried vomit on her face. This very well could be coffee-ground emesis. Skin: Warm, dry Head: Normocephalic, atraumatic. Neck: Supple, trachea midline. Eye: pupils pinpoint, sluggish, equal Ears, nose, mouth and throat: ETT in place. Cardiovascular: Regular rate and rhythm, Normal peripheral perfusion. Respiratory: coarse, mechanically ventilated, breath sounds are equal, Symmetrical chest wall expansion. Gastrointestinal: Soft, Non distended, Normal bowel sounds. Musculoskeletal: no deformity. Neurological: unable to assess. Psychiatric: unable to assess Course Vital Signs: Vital signs: Vital Signs Temperature 99.2 F 10/10/23 16:08 Pulse Rate 108 H 10/10/23 20:05 Respiratory Rate 29 H 10/10/23 19:23 Blood Pressure 136/63 10/10/23 20:05 Pulse Oximetry 98 10/10/23 18:45 Oxygen Delivery Me thod Mechanical Ventil ation 10/10/23 16:39 Fraction of Inspir ed Oxygen 60 10/10/23 16:50 MDM - SOB/Dyspnea Medical Decision Making Lab review: All lab work was reviewed and interpreted by myself the emergency room physician. Patient has significant leukocytosis with a white count of 19,000. Hemoglobin is 11.5. BUN and creatinine are 7 and 0.3. Her sodium is a significantly low at 115. CT of the head shows a relatively prominent increase in mass effect and anterior right cerebrum with associated increase in intracranial pressure and developing hydrocephalus. This was reviewed and interpreted by myself the emergency room physician. I also reviewed the radiology report. CT of the chest with out contrast: There is concern for nodules throughout the lungs and esophagitis. My radiology review Consultation: I spoke with Dr. Dodd who is the physician over the [place] [facility] from which the patient came. He says he had talked with her recently several times about her hospice care status and that she did not want to be intubated or have CPR or aggressive care and that she was going towards comfort measures. He says he is not sure what happened with the staff but he will try to make sure this is not a problem again. He recommends terminal extubation based on his experience with the patient. Consultation: Hospice service was consulted and their telephone sales representative has been here in the hospital with his throughout. I spoke at length initially with the life partner. He is not . He says that he had spoken to her when she first went to the [facility] about these issues and at that time she had wanted to be a full code he thinks. However he does admit that she may have changed her thinking through time. He had not talked to her about it since she had gone into hospice. I have now spoken with mom who would be the person to make decisions about her at this point. Initially she has difficulty with the decision but eventually she is decided that she does believe that this would be against the patient's wishes and she does wish for extubation. We have discussed that she may persist or she may pass quickly and is difficult to know what will happen when you extubate someone. Consultation: has been consulted and is here with the family. Reexamination: Patient remained stable with sats 100% on the ventilator. She become agitated and open her eyes and nodding that she wants the tube out. We discussed this with family and ultimately decide to extubate. Procedure: Extubation to comfort measures. With the endorsement of family patient has been extubated. She is having a little bit of difficulty breathing. Oxygen saturations are moderate. She is being given morphine and Ativan to help make her more comfortable. Reexamination: Patient becomes a bit agitated after extubation. She has received Ativan and morphine, multiple doses. Hospice nurses here. She already has hospice medications the morphine and Ativan etc. at the [facility] so she agrees to transferring back. Patient sats are borderline on oxygen support. After meds she seems less agitated. Assessment and plan: Worsening brain mass with mass effect Respiratory failure Intubation Extubation Hospice and comfort measures Hyponatremia Leukocytosis ?Normal saline bolus was given initially. She has received Decadron. I gave her broad-spectrum antibiotics initially. -After consultation with her primary at the [place] [facility] and with family patient has been placed on comfort measures only and has received morphine and Ativan multiple doses. - Discharged home - Discussed findings and plan with patient. Answered any questions. - All laboratory values were reviewed and interpreted personally by myself, the ER physician - All imaging was reviewed and interpreted personally by myself, the ER physician. - Evaluation and treatment of this problem were appropriate in the emergency setting Lab Data 10/10/23 16:09 10/10/23 16:09 Labs/Radiology: Radiology Impressions Chest X-Ray 10/10/23 16:09 IMPRESSION: No acute findings. Head CT 10/10/23 16:28 IMPRESSION: Relatively prominent increase in mass effect at anterior right cerebrum with associated increase in intracranial pressure and developing hydrocephalus. THIS REPORT CONTAINS FINDINGS THAT MAY BE CRITICAL TO PATIENT CARE. The findings were verbally communicated via telephone conference with ALLYSSA NARANJO at 6:35 PM CDT on 10/10/2023. The findings were acknowledged and understood. Chest CT 10/10/23 17:28 IMPRESSION: 1. Diffuse nodular opacities throughout the lung bases and to a lesser extent the upper lobes and right middle lobe measuring up to 20 x 16 mm. Findings are nonspecific but can be seen the setting infectious etiology. Neoplasm cannot be excluded. For patients at low risk (minimal or absent history of smoking and of other known risk factors), recommend CT Chest at 3-6 months, then consider CT Chest at 18-24 months. For patients at high risk (history of smoking or of other known risk factors), recommend CT Chest at 3-6 months, then CT Chest at 18-24 months. (Reference: Summer) 2. Apparent extensive fat the infiltration of the wall of the esophagus seen on (series 15, image 1 through 4). This is incompletely assessed on this examination. 3. Extensive fat stranding surrounding the mid esophagus at the level above and below the kira. Which is nonspecific but can be seen the setting of esophagitis. References: Summer Bailey, et al. Guidelines for Management of Incidental Pulmonary Nodules Detected on CT Images: From the Fleischner Society 2017. Radiology. 2017;284(1):228-243. Laboratory Results WBC 19.21 10^3/uL (3.29-11.43) H 10/10/23 16:09 RBC 3.73 10^6/uL (3.85-5.65) L 10/10/23 16:09 Hgb 11.50 g/dL (11.27-16.99) 10/10/23 16:09 Hct 34.9 % (36-47) L 10/10/23 16:09 MCV 93.6 fl (85-98) 10/10/23 16:09 MCH 30.8 pg (27-33) 10/10/23 16:09 MCHC 33.0 g/dL (30-55) 10/10/23 16:09 RDW 14.9 % (12.1-15.1) 10/10/23 16:09 Plt Count 180 10^3/cmm (157-399) 10/10/23 16:09 MPV 8.4 fL (7.4-10.4) 10/10/23 16:09 Neut % (Auto) 88.5 % 10/10/23 16:09 Lymph % (Auto) 2.7 % 10/10/23 16:09 Bartholomew % (Auto) 3.6 % 10/10/23 16:09 Eos % (Auto) 0.1 % 10/10/23 16:09 Baso % (Auto) 0.1 % 10/10/23 16:09 Neut # (Auto) 17.00 10^3/uL (1.8-7.7) H 10/10/23 16:09 Lymph # (Auto) 0.5 10^3/uL (0.8-4.8) L 10/10/23 16:09 Bartholomew # (Auto) 0.7 10^3/uL (0.2-0.9) 10/10/23 16:09 Eos # (Auto) 0.0 10^3/uL (0.0-0.8) 10/10/23 16:09 Baso # (Auto) 0.0 10^3/uL (0.0-0.1) 10/10/23 16:09 Nucleated RBC % (auto) 0 % 10/10/23 16:09 Nucleated RBCs # 0.0 /100WBC 10/10/23 16:09 PT 13.20 SECONDS (12.1-14.9) 10/10/23 16:12 INR 0.97 (0.8-1.2) 10/10/23 16:12 APTT 32.0 SECONDS (23.9-36.7) 10/10/23 16:12 Specimen Type Arterial 10/10/23 16:28 Sample Site Radial, left 10/10/23 16:28 ABG pH 7.37 (7.35-7.45) 10/10/23 16:28 ABG pCO2 47.8 mmHg (35-45) H 10/10/23 16:28 ABG pO2 248.0 mmHg (80.0-100.0) H 10/10/23 16:28 ABG HCO3 27.6 mmol/L (22-26) H 10/10/23 16:28 ABG O2 Saturation > 100.0 10/10/23 16:28 ABG Base Excess 1.8 mmol/L (-2.0-2.0) 10/10/23 16:28 Arya Test Pos 10/10/23 16:28 A-a O2 Gradient Not Reportable 10/10/23 16:28 Hematocrit 34.2 % (37-47) L 10/10/23 16:28 Hgb O2 Saturation 99.0 % (95-100) 10/10/23 16:28 Carboxyhemoglobin 1.1 %THgb (0.4-20.1) 10/10/23 16:28 Methemoglobin 0.2 % (0.4-1.5) L 10/10/23 16:28 Total Hemoglobin 11.2 g/dL (12-16) L 10/10/23 16:28 Sodium 112.0 mmol/L (131-143) L 10/10/23 16:28 Potassium 3.3 mmol/L (3.5-5.0) L 10/10/23 16:28 Glucose 158.0 mg/dL (70-115) H 10/10/23 16:28 Ionized Calcium 1.1 mmol/L (1.1-1.4) 10/10/23 16:28 O2 Delivery Device Vent 10/10/23 16:28 Tidal Volume 0.40 10/10/23 16:28 PEEP 8.0 cmH20 10/10/23 16:28 Community Worker ID Cak 10/10/23 16:28 Sodium 115 mmol/L (136-145) L* 10/10/23 16:09 Potassium 3.6 mmol/L (3.5-5.1) 10/10/23 16:09 Chloride 74 mmol/L (98-107) L 10/10/23 16:09 Carbon Dioxide 23 mmol/L (22-29) 10/10/23 16:09 Anion Gap 21.6 (5-19) H 10/10/23 16:09 BUN 7 mg/dL (6-20) 10/10/23 16:09 Creatinine 0.3 mg/dL (0.5-0.9) L 10/10/23 16:09 GFR Calculation 251.7 mL/min (90-130) H 10/10/23 16:09 Glucose 182 mg/dL (65-115) H 10/10/23 16:09 Calculated Osmolality 243 mOsm/kg (285-295) L 10/10/23 16:09 Lactic Acid 1.9 mmol/L (0.5-2.2) 10/10/23 16:09 Calcium 8.4 mg/dL (8.5-10.5) L 10/10/23 16:09 Total Bilirubin 1.1 mg/dL (0.15-1.2) 10/10/23 16:09 AST 25 U/L (0-32) 10/10/23 16:09 ALT 41 U/L (0-33) H 10/10/23 16:09 Alkaline Phosphatase 72 U/L (35-105) 08/02/24 16:09 Troponin T Baseline 36 ng/L (0-10) H 10/10/23 16:09 C-Reactive Protein 127.0 mg/L (0.0-4.9) H 10/10/23 16:09 Total Protein 5.7 g/dL (6.6-8.7) L 10/10/23 16:09 Albumin 3.3 g/dL (3.5-5.2) L 10/10/23 16:09 Globulin 2.4 g/dL (1.3-4.6) 10/10/23 16:09 Blood Type A Positive 10/10/23 16:12 Rho(D) Type Rh positive 10/10/23 16:12 Antibody Screen Negative 10/10/23 16:12 All radiology interpretation(s) finalized by discharge Discharge Plan Discharge Patient Disposition: Home Clinical Impression: Hospice care patient, Brain neoplasm, Respiratory failure, Vomiting Condition: Stable Prescriptions: No Action albuterol sulfate 2.5 mg /3 mL (0.083 %) solution for nebulization 2.5 mg inhalation Q6H bisacodyl 5 mg tablet,delayed release (DR/EC) 10 mg PO DAILY PRN cetirizine 10 mg tablet 10 mg PO DAILY dexamethasone 4 mg tablet 4 mg PO DAILY docusate sodium 100 mg tablet 100 mg PO BID fluticasone propionate 50 mcg/actuation spray,suspension 1 spray intranasal DAILY Rx Instructions: administer into each nostril levetiracetam [Keppra] 500 mg tablet 500 mg PO BID lisinopril 20 mg tablet 20 mg PO DAILY nicotine 21 mg/24 hr patch 24 hour 1 patch transdermal DAILY prochlorperazine maleate 10 mg tablet 10 mg PO Q6H PRN sennosides [senna] 8.6 mg tablet 8.6 mg PO BID levothyroxine 150 mcg capsule 150 mcg PO DAILY omeprazole 20 mg Capsule,Delayed Release(Dr/Ec) 20 mg PO DAILY Advair Diskus 100-50 mcg/dose blister with device 1 inh inhalation BID Qty: 60 0RF Discharge Orders: Discharge ED (Routine); Ordered 10/10/23 Ordered By: Allyssa Naranjo Referrals: Becky Ruiz MD [Primary Care Provider] - Discharge Diet: Usual diet Discharge Activity: Increase activity as tolerated Patient Instructions: Hospice Care Coding Level of Care Code ED Filters Assembler for Chg Fwd
[2023-10-10 16:38] LABS: Slide Review Slide Review Perform
[2023-10-10 16:39] LABS: INR 0.97 (0.8-1.2)
[2023-10-10 16:41] LABS: ABG PCO2 47.8 mmHg (35-45); ABG PH Result 7.37 (7.35-7.45); Arterial Blood Gas Hematocrit 34.2 % (37-47); Base Excess ABG 1.8 mmol/L (-2.0-2.0); Blood Gas Allen Test Pos; Blood Gas Operator Identificat CAK; Blood Gas Sample Site Radial, left; Blood Gas Sample Type Arterial; Carboxyhemoglobin 1.1 %THgb (0.4-20.1); HCO3 ABG 27.6 mmol/L (22-26); Ionized Calcium Level - ABG 1.1 mmol/L (1.1-1.4); Methemoglobin 0.2 % (0.4-1.5); Oxygen Device VENT; Oxygen Saturation ABG > 100.0; Potassium Level - ABG 3.3 mmol/L (3.5-5.0); Total Hemoglobin 11.2 g/dL (12-16)
[2023-10-10 16:47] LABS: Alanine Aminotransferase 41 U/L (0-33); Albumin Level 3.3 g/dL (3.5-5.2); Alkaline Phosphatase 72 U/L (35-105); Blood Urea Nitrogen 7 mg/dL (6-20); Calcium 8.4 mg/dL (8.5-10.5); Carbon Dioxide 23 mmol/L (22-29); Chloride 74 mmol/L (98-107); Creatinine Clr Calc Pharmacy 269.1485; Globulin 2.4 g/dL (1.3-4.6); Glomerular Filtration Rate 251.7 mL/min (90-130); Glucose 182 mg/dL (65-115); Osmolality Calculated 243 mOsm/kg (285-295); Total Bilirubin 1.1 mg/dL (0.15-1.2); Total Protein 5.7 g/dL (6.6-8.7)
[2023-10-10 16:48] LABS: Lactic Sepsis W/Reflex 1.9 mmol/L (0.5-2.2)
[2023-10-10 16:49] LABS: Troponin(5th) Baseline 36 ng/L (0-10)
[2023-10-10 16:50] LABS: Anion Gap 21.6 (5-19); Aspartate Amino Transferase 25 U/L (0-32); Potassium 3.6 mmol/L (3.5-5.1)
[2023-10-10] MEDS: sodium chloride 0.9% 1,000 ML 999 ML IV (16:50)
[2023-10-10 16:51] LABS: Sodium 115 mmol/L (136-145)
--- NOTE | 2023-10-10 17:28 | CTR_ITS ---
PROCEDURE INFORMATION: Exam: CT Chest Without Contrast; Diagnostic Exam date and time: 10/10/2023 5:29 PM Age: 38 years old Clinical indication: Patient HX: EMS arrival from senior living for unresponsiveness and hemoptysis. History of glioblastoma and copd. ; Additional info: Coughing up blood TECHNIQUE: Imaging protocol: Diagnostic computed tomography of the chest without contrast. Radiation optimization: All CT scans at this facility use at least one of these dose optimization techniques: automated exposure control; mA and/or kV adjustment per patient size (includes targeted exams where dose is matched to clinical indication); or iterative reconstruction. COMPARISON: CT angio chest PE protcl [id number] 06/07/2022 12:51 PM RADIATION DOSE METRICS: Total DLP (mGy-cm): 573.91 FINDINGS: Lungs: Diffuse nodular opacities throughout the lung bases and to a lesser extent the upper lobes and right middle lobe measuring up to 20 x 16 mm. Pleural spaces: Unremarkable. No pneumothorax. No pleural effusion. Heart: Unremarkable. No cardiomegaly. No pericardial effusion. No coronary artery calcifications. Esophagus: Apparent extensive fat the infiltration of the wall of the esophagus seen on (series 15, image 1 through 4). This is incompletely assessed on this examination. Extensive fat stranding surrounding the mid esophagus at the level above and below the kira. Which is nonspecific but can be seen the setting of esophagitis. Lymph nodes: Unremarkable. No enlarged lymph nodes. Vasculature: Unremarkable. No aortic aneurysm. Liver: The liver is diffusely low in attenuation consistent with hepatic steatosis. Spleen: There is a hypodense rounded lesion anterior aspect spleen measuring 17 mm, previously 16 mm. This measures 21 Hounsfield units in attenuation and may represent a cyst. Bones/joints: Unremarkable. No acute fracture. Soft tissues: Unremarkable. CT/CT chest [facility] [id number] IMPRESSION: 1. Diffuse nodular opacities throughout the lung bases and to a lesser extent the upper lobes and right middle lobe measuring up to 20 x 16 mm. Findings are nonspecific but can be seen the setting infectious etiology. Neoplasm cannot be excluded. For patients at low risk (minimal or absent history of smoking and of other known risk factors), recommend CT Chest at 3-6 months, then consider CT Chest at 18-24 months. For patients at high risk (history of smoking or of other known risk factors), recommend CT Chest at 3-6 months, then CT Chest at 18-24 months. (Reference: Summer) 2. Apparent extensive fat the infiltration of the wall of the esophagus seen on (series 15, image 1 through 4). This is incompletely assessed on this examination. 3. Extensive fat stranding surrounding the mid esophagus at the level above and below the kira. Which is nonspecific but can be seen the setting of esophagitis. References: Summer Bailey, et al. Guidelines for Management of Incidental Pulmonary Nodules Detected on CT Images: From the Fleischner Society 2017. Radiology. 2017;284(1):228-243.
[2023-10-10] MEDS: linezolid premix 600 MG/300 ML PREMIX 300 MG IV (17:53)
[2023-10-10] MEDS: meropenem 500 mg SDV IVP (17:54)
[2023-10-10] MEDS: hyDRALAzine 20 mg/mL INJ 1 mL IVP (19:05)
[2023-10-10] MEDS: dexamethasone 10 mg/mL INJ IVP (19:06)
[2023-10-10] MEDS: morphine 4 mg/mL SDV 1 mL IVP ×2 (19:23→19:46)
[2023-10-10] MEDS: LORazepam 2 mg/mL INJ 10 mL MDV 1 MG IVP ×2 (19:28→20:45)
[2023-10-10] MEDS: scopolamine 1.5 Patch 1 PATCH TRANSDERMA (20:05)
[2023-10-10] MEDS: LORazepam 2 mg/mL INJ 1 mL 1 MG IVP (20:07)
[2023-10-10] MEDS: sodium chloride 0.9% 1,000 ML 1000 ML IV ×2 (20:08→20:44)
== END 2023-10-10 23:09 | disposition home or self-care (01) ==
PROVIDERS: Emergency Provider Emergency Medicine; PCP Family Medicine
DX: J96.90 Respiratory failure, unspecified, unspecified whether with hypoxia or hypercapnia (principal); D49.6 Neoplasm of unspecified behavior of brain; R11.11 Vomiting without nausea; J44.9 Chronic obstructive pulmonary disease, unspecified; Z72.0 Tobacco use
CPT/HCPCS: 36600; 70450; 71045; 71250; 80051; 80053; 82330; 82805; 83605; 84484; 85025; 85610; 85730; 86140; 86850; 86900; 87040; 93005; 94002; 96374; 96375; 96376; 99285; J0360; J1100; J2020; J2060; J2185; J2270; J2470; J7030